=== PATIENT | female | born 1935 | race Caucasian/White ===

== ENCOUNTER 2016-11-23 17:46 | Emergency (ER) | payer MEDICARE ==
[~2016-11-23] VITALS: Ht 157.5 cm; Wt 59.0 kg
[~2016-11-23 17:46] MED LIST: ACET-62 PO; ASPI-611 PO; CALC-696 PO; ESTR0.5T4 PO; FISH1CAP47 PO; HYDR-4246 PO; LOSA25TA34 PO; NEBI5TAB8 PO; OMEP40CA52 PO; ONDA4TAB7 PO; PRED5TAB PO; [UNRECOGNIZED DRUG - CODE] PO
[2016-11-23 17:48] VITALS: Ht 157.5 cm; Wt 59.0 kg
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
[2016-11-23] MEDS ORDERED: METO25TA6 PO (18:08)
[2016-11-23] MEDS ORDERED: AMLO5TAB2 PO (18:08)
[2016-11-23] MEDS ORDERED: OMEG-43 PO (18:11)
[2016-11-23] MEDS ORDERED: PRED5TAB PO (18:11)
[2016-11-23] MEDS ORDERED: PSYL1PAC11 PO (18:13)
[2016-11-23] MEDS ORDERED: MAGN400T6 PO (18:13)
--- NOTE | 2016-11-23 18:20 | NUR ---
PHYSICIAN IN WITH PT
--- NOTE | 2016-11-23 18:26 | ERPDOC ---
Departure Disposition Decision Date: Nov 23, 2016 Disposition Decision Time: 18:59 Disposition: 01 DISCHARGED HOME, SELF-CARE Impression Impression Impression: Primary Impression: Lumbar back pain Chronicity: acute Back pain laterality: right Sciatica presence: without sciatica Qualified Codes: M54.5 - Low back pain Severity: Moderate Condition: Stable Seen By: Physician only Referrals: ZUHAIR RICHARD DO (Family) Follow-up for reevaluation Patient Instructions: Lower Back Exercises (ED) Problems/Meds/Labs Reviewed?: Yes Medications reviewed and manag: Yes Follow up care ordered?: Yes Mental Status: Alert, Oriented Scripts Hydrocodone/Acetaminophen (Cranberry 5-325 Tablet) 5-325 Tablet 1-2 TAB PO Q6H Y for PAIN, #15 TAB Prov: SHONA LEO MD 11/23/16 HPI - Back Pain General Chief Complaint: Low Back Pain or Injury Stated Complaint: LOW BACK PAIN Time Seen by Provider: 18:26 Source: patient, family Exam Limitations: no limitations HPI - Back Pain Initial Comments Patient is a 81-year-old female presents emergency room for evaluation of low back pain. Patient fell approximately 10 days ago landing on her coccyx. Since that time patient's had significant low back pain, worse when standing up or sitting down, minimal pain when sitting moderate pain when standing and walking. Patient has been taking Tylenol with moderate relief, did see her primary care physician for general checkup, discussed it with them who told her just keep taking the Tylenol. Patient is at increased use in the last 24 hours due to a garage sale, multiple walking up and down the steps. Patient now having significant low back pain so decided to present to the ER for evaluation Occurred At: home Onset/Timing: Getting worse Duration: other (10 days) Pain/Severity Scale: Now & Worst: 8/10 Location: paraspinous muscles Radiation: buttocks Method of Injury/Context: other (lost balance landing on bottom) Associated Sypmtoms: denies symptoms Allergies: Coded Allergies: celecoxib (Verified Allergy, Intermediate, SWELLING AND HIVES, 11/23/16) Pentazocine Lactate (Verified Allergy, Unknown, 11/23/16) dextromethorphan HBr (Verified Allergy, Unknown, 11/23/16) guaifenesin (Verified Allergy, Unknown, 11/23/16) ofloxacin (Verified Allergy, Unknown, 11/23/16) oxaprozin (Verified Allergy, Unknown, 11/23/16) prazosin HCl (Verified Allergy, Unknown, 11/23/16) propoxyphene (Verified Allergy, Unknown, 11/23/16) propranolol (Verified Allergy, Unknown, 11/23/16) Uncoded Allergies: MIRTHA (Allergy, Unknown, 11/02/12) Past History Past Medical History Metabolic: hypertension Cardiac: angina GI: ulcers Musculoskeletal: lupus, osteoarthritis Surgical History General: appendix, gallbladder Reproductive/: hysterectomy Joint: other Family History Family PMH: FOUND: other Vaccines Hx Influenza Vaccination: Yes (SEASONAL ) Hx Pneumococcal Vaccination: Yes (SEVERAL YEARS AGO) Social History Smoking Status: Never smoker Substance Use Type: does not use Sexuality: male partner Review of Systems Constitutional Constitutional: DENIES: chills, fever ENMT Sinuses: DENIES: congestion, rhinorrhea Cardiovascular Cardiac: DENIES: chest pain, dyspnea on exertion Pulmonary Respiratory: DENIES: cough, dyspnea, sputum, tachypnea GI Upper Abdomen: DENIES: pain Lower Abdomen: DENIES: pain Musculoskeletal General: see HPI Integumentary Skin: DENIES: color change, itching, rash Endocrine Endocrine: DENIES: heat/cold intolerance Hematologic/Lymphatic Hematologic/Lymphatic: DENIES: anemia Physical Exam General General Nourishment: well nourished, well developed General Body Habitus: well groomed Vitals and Pain First Documented Vital Signs Date Time Temp Pulse Resp B/P Pulse Ox O2 Delivery O2 Flow Rate FiO2 11/23/16 17:48 97.9 65 20 206/90 99 Room Air Weight: Kilograms: 59.000 Height (feet): 5 Height (inches): 2.00 Triage Pain Scale: RN VS reviewed by Provider: Yes Respiratory (brief) Respiratory: FOUND: equal bilaterally Cardiovascular (brief) Cardiac: FOUND: regular rate Lymphatic (brief) Lymphatic Brief: NOT FOUND: adenopathy Musculoskeletal (brief) Musculoskeletal Brief: FOUND: tenderness, NOT FOUND: spasm Integumentary (brief) Integumentary Brief: FOUND: pink, warm Neurologic (brief) Neurological Brief: FOUND: CN w/o gross def to obs, motor-no gross deficits, sensory-no gross deficits Psychiatric (brief) Psychiatric Brief: FOUND: alert, oriented Differential Diagnoses Considering: Compression Fracture, Fracture, Lumbar Sprain, Lumbar Strain Progress Results/Orders Orders Procedure Category Date Status Time Hydrocodone/Acetaminophen PHA 11/23/16 Complete (Cranberry 5/325) 18:45 Pelvis 1-2 View RAD 11/23/16 Taken Dedicated Pelv 18:33 Lumbar Spine 2-3 Views RAD 11/23/16 Taken 18:33 Medications Current ED Medications Acetaminophen/ Hydrocodone Bitart (Cranberry 5/325) 1 tab O ONCE PO Last administered on 11/23/16t 18:43; Start 11/23/16 at 18:45; Stop 11/23/16 at 18:46 ; Status DC Progress Progress Patient's x-rays are noncontributory, we'll discharge patient home Cranberry one to 2 by mouth every 6 hours when necessary pain, follow-up with primary medical physician if not improved next week. Xray Xray #1: Xray: Pelvis Interpretation: Normal, Interpreted by Me Xray #2: Xray: L-Spine Interpretation: Normal, Interpreted by SHONA Prasad MD Nov 23, 2016 18:26
[2016-11-23] MEDS ORDERED: HYDROCODONE/APAP 5 mg/325 mg TABLET PO ONE (18:45)
--- NOTE | 2016-11-23 18:45 | NUR ---
IMAGING PT TO IMAGING AT THIS TIME.
--- NOTE | 2016-11-23 18:54 | NUR ---
IMAGING PT RETURN TO ROOM FROM IMAGING VIA WHEEL CHAIR. NO SIGN OF DISTRESS AT THIS TIME.
[2016-11-23] MEDS ORDERED: HYDR-4246 PO (19:00)
[2016-11-23 19:23] VITALS: BP 162/70; PULSE 62; RESP 20; TEMP 97.9; O2SAT 99
--- NOTE | 2016-11-24 21:00 | DI ---
Indication: ITS.REASON: low back pain right greater than left PROCEDURE: LUMBAR SPINE 2-3 VIEWS: Encounter: Initial Comparison: MRI lumbar spine dated December 29, 2012 Findings: No acute fracture or subluxation seen. The body heights are maintained. Mild disk space narrowing at L3-L4 with moderate disk height loss at L4-L5 and L5-S1. Degenerative facet change at L5-S1 with slight anterolisthesis of L4 on L5. Impression: No acute fracture. .
--- NOTE | 2016-11-24 21:02 | DI ---
Indication: ITS.REASON: right posterior, near SI joint just lateral PROCEDURE: PELVIS 1-2 VIEW DEDICATED PELV: Encounter: Initial Comparison: None Findings: There is no acute fracture, dislocation or malalignment identified. Degenerative change in the visualized lower lumbar spine. Bony demineralization. Impression: No acute osseous abnormality. .
== END 2016-11-23 19:23 | disposition home or self-care (01) ==
LOC: ED 17:46
DX: M54.5 Low back pain (principal); W19.XXXA Unspecified fall, initial encounter; Y93.9 Activity, unspecified; Y92.009 Unspecified place in unspecified non-institutional (private) residence as the place of occurrence of the external cause; Y99.8 Other external cause status
CPT/HCPCS: 72100; 72170; 99283; A9270

== ENCOUNTER → 2016-11-27 | Outpatient (CLI) | payer MEDICARE ==
[~2016-11-27] MED LIST changes: +AMLO5TAB2 PO; -ASPI-611 PO; +CALC-747 PO; +CALC3.7S NAS; +DOCU-168 PO; -FISH1CAP47 PO; -LOSA25TA34 PO; +MAGN400T6 PO; +METO25TA6 PO; -NEBI5TAB8 PO; +OMEG-43 PO; -ONDA4TAB7 PO; +PSYL1PAC11 PO
--- NOTE | 2016-11-28 11:18 | DI ---
Indication: ITS.REASON: RADICULOPATHY PROCEDURE: MRI LUMBAR SPINE W/O CONTRAST: Encounter: Initial Comparison: Lumbar spine radiographs dated November 23, 2016 and MRI lumbar spine dated December 29, 2012 Technique: Multiplanar multisequence MR imaging of the lumbar spine was performed without contrast. Findings: Alignment of the lumbar spine is stable. There is some focal edema within the S2 and S3 vertebra, new from the prior study suggesting a nondisplaced trabecular fracture. The remaining bone marrow signal intensity is within normal limits. Conus medullaris terminates normally at L1-L2. The paraspinal soft tissues are unremarkable. Segmental analysis: L1-L2: Normal L2-L3: Normal L3-L4: Right foraminal disk protrusion without central canal stenosis. This narrows the right lateral recess and causes mild right neural foraminal narrowing. No significant left foraminal stenosis. This is worsened from the comparison. L4-L5: Moderate disk height loss without focal protrusion or central canal stenosis. Degenerative facet disease contributing to mild left bony neural foraminal stenosis. No right foraminal narrowing. This is similar to the comparison. L5-S1: Degenerative grade 1 anterolisthesis of L5 on S1 without focal protrusion or central canal stenosis. Mild to moderate bilateral neural foraminal stenosis, similar to the comparison. Impression: Nondisplaced sacral fracture. .
== END ==
LOC: IMA 18:05
PROVIDERS: ATTEND Internal Medicine
DX: M51.16 Intervertebral disc disorders with radiculopathy, lumbar region (principal); M43.17 Spondylolisthesis, lumbosacral region; M47.896 Other spondylosis, lumbar region; R60.0 Localized edema; Z91.81 History of falling

== ENCOUNTER 2016-11-30 05:02 | Inpatient (IN) | payer MEDICARE ==
[~2016-11-30] VITALS: Ht 157.5 cm; Wt 56.9 kg
[~2016-11-30 05:02] MED LIST changes: -CALC-747 PO; -CALC3.7S NAS; -DOCU-168 PO
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
[2016-11-30] MEDS ORDERED: FENTANYL 100mcg/2ml INJECTION IV ONE (05:30)
[2016-11-30] MEDS ORDERED: DOCU-168 PO (06:07)
--- NOTE | 2016-11-30 06:10 | NUR ---
PROVIDER DR. FOREMAN IN ROOM WITH PT.
--- NOTE | 2016-11-30 06:28 | ERPDOC ---
Departure Disposition Decision Date: Nov 30, 2016 Disposition Decision Time: 06:28 Disposition: [address] [facility] Impression Impression Impression: Primary Impression: Sacral fracture, closed Encounter type: subsequent encounter Zone of sacrum fracture: unspecified portion of sacrum Fracture healing: with routine healing Qualified Codes: S32.10XD - Unspecified fracture of sacrum, subsequent encounter for fracture with routine healing Severity: Severe Condition: Improved Seen By: Physician only Referrals: ZUHAIR RICHARD DO (Family) Problems/Meds/Labs Reviewed?: Yes Medications reviewed and manag: Yes Follow up care ordered?: Yes Mental Status: Alert, Oriented HPI - Back Pain General Chief Complaint: Low Back Pain or Injury Stated Complaint: PAIN FX SACRAM Time Seen by Provider: 05:06 Source: patient Exam Limitations: no limitations HPI - Back Pain Initial Comments Patient presents with intractable sacral pain after diagnosis by MRI of nondisplaced sacral fracture. Currently patient is using [place] 5 mg 4 times daily, but is having increased confusion when she takes the tablets, as well as inadequate pain control. Patient does not feel safe at home, and her pain has worsened to the point that she's having difficulty ambulating secondary to pain. Occurred At: home Onset/Timing: Gradual Location: coccyx 1 - Severe pain and tenderness Hx of Similar Symptoms: No Allergies: Coded Allergies: celecoxib (Verified Allergy, Intermediate, SWELLING AND HIVES, 11/30/16) Pentazocine Lactate (Verified Allergy, Unknown, 11/30/16) dextromethorphan HBr (Verified Allergy, Unknown, 11/30/16) guaifenesin (Verified Allergy, Unknown, 11/30/16) ofloxacin (Verified Allergy, Unknown, 11/30/16) oxaprozin (Verified Allergy, Unknown, 11/30/16) prazosin HCl (Verified Allergy, Unknown, 11/30/16) propoxyphene (Verified Allergy, Unknown, 11/30/16) propranolol (Verified Allergy, Unknown, 11/30/16) Uncoded Allergies: MIRTHA (Allergy, Unknown, 11/02/12) Past History Past Medical History Metabolic: hypertension Cardiac: angina GI: ulcers Musculoskeletal: lupus, osteoarthritis Surgical History General: appendix, gallbladder Reproductive/: hysterectomy Joint: other Family History Family PMH: FOUND: other Vaccines Hx Influenza Vaccination: Yes (SEASONAL ) Hx Pneumococcal Vaccination: Yes (SEVERAL YEARS AGO) Social History Substance Use Type: does not use Sexuality: male partner Review of Systems Constitutional Constitutional: DENIES: appetite decrease, appetite increase, chills, dizziness , fever, weakness ENMT Ears: DENIES: pain Hearing: DENIES: hearing loss, tinnitus Balance: DENIES: vertigo Mouth/Throat: DENIES: change in swallowing, change in voice, hoarsness, painful swallowing, sore throat Cardiovascular Cardiac: DENIES: chest pain, dyspnea on exertion Rhythm/Rate: DENIES: irregular beat, palpitations, tachycardia Vascular: DENIES: pedal edema Pulmonary Respiratory: DENIES: cough, dyspnea, pleuritic chest pain GI Upper Abdomen: DENIES: dysphagia, heartburn/indigestion, nausea, pain, vomiting Lower Abdomen: DENIES: blood in stool, constipation, diarrhea, pain General: DENIES: burning, dysuria, frequency, pain, urgency Musculoskeletal General: pain, tenderness, DENIES: atrophy of muscles, cramps, joint pain, joint swelling, weakness Integumentary Skin: DENIES: rash, sores Neurological General: DENIES: headache, numbness, tingling, vertigo, weakness Psychiatric Psychiatric: DENIES: anxiety, depression, nervousness Physical Exam General General Nourishment: well nourished, well developed, appears stated age General Body Habitus: well groomed Vitals and Pain First Documented Vital Signs Date Time Temp Pulse Resp B/P Pulse Ox O2 Delivery O2 Flow Rate FiO2 11/30/16 05:02 97.8 84 18 186/78 97 Room Air Weight: Kilograms: 58.600 Height (feet): 5 Height (inches): 2.00 Triage Pain Scale: RN VS reviewed by Provider: Yes Normal Exams: Head: Normocephalic w/o trauma Eyes: Pupils are PERRLA w/ EOMI, No scleral icterus, irritation, or foreign bodies noted ENMT: No facial trauma, nasal exudates, pharyngeal erythema, or exudates are noted Neck: Full range of motion, without adenopathy, JVD, bruits or thyromegaly Chest/Resp: Clear all ladd, with good airflow, and symmetry bilaterally CV: Regular rate and rhythm, without murmur or gallop, Pulses 2+ all extremities, capillary refill, <2 seconds all ext., no pedal edema noted Abdomen: Bowel sounds positive, soft, non-tender, non-distended, no hepatosplenomegaly, masses or bruits noted Lymphatic: No lymphadenopathy, or lymphedema noted Integumentary: No rashes, hives, or bruising noted, hair and nails, without abnormality Neurologic: Patient is alert, and oriented, cranial nerves, motor/sensory/ cerebellar, exams w/o gross deficits, to observation Psychiatric: Patient exhibits, appropriate attention, emotion and affect Musculoskeletal (brief) Musculoskeletal Brief: FOUND: tenderness, NOT FOUND: deformity, loss of motion , spasm Comments Severe low sacral tenderness, no deformity Progress Results/Orders Orders Procedure Category Date Status Time Iv Lock (Ed Only) EDM 11/30/16 Transmitted 05:26 Fentanyl (Fentanyl) PHA 11/30/16 Complete 05:30 Ondansetron Inj PHA 11/30/16 In Process (Zofran) 05:30 Lidocaine 5% Patch PHA 11/30/16 Transmitted (Lidoderm) 06:30 Morphine Sulfate PHA 11/30/16 Transmitted (Morphine) 06:30 Medications Current ED Medications Fentanyl (Fentanyl) 50 mcg O ONCE IV Last administered on 11/30/16t 05:35; Start 11/30/16 at 05:30; Stop 11/30/16 at 05:31; Status DC Ondansetron HCl (Zofran) 4 mg O PRN IV NAUSEA &/OR VOMITING; Start 11/30/16 at 05:30 Progress Progress Patient has multiple allergies as well as extreme sensitivity to medications and significant fear about medication side effects including psychosis. After extensive discussion, patient decided to except 50 g of fentanyl IV - initially patient had good pain control while lying still in bed, but still had "excruciating pain" with any movement of the legs were trying to sit up. Patient does not feel that she is safe at home, and is still not having adequate pain control. In the ER patient had applied 5% lidocaine patch to the sacrum as well as 2 mg morphine IV to improved pain control Case is discussed with Dr. Richard - will admit for pain control and OP/PT evaluation ZUHAIR FOREMAN MD Nov 30, 2016 06:28
[2016-11-30] MEDS ORDERED: MORPHINE SULFATE 2 MG SYRINGE IV ONE (06:30)
[2016-11-30] MEDS ORDERED: LIDOCAINE 5% PATCH TOP ONE (06:30)
--- NOTE | 2016-11-30 06:54 | NUR ---
REPORT REPORT CALLED TO JOLLY WOODS.
[2016-11-30] MEDS: ONDANSETRON 4mg/2ml INJECTION IV PRN (07:00)
--- NOTE | 2016-11-30 07:00 | NUR ---
ADMITTED PATIENT IS SETTLED TO ROOM 137. CONTINUES TO VERBALIZE SACRAL PAIN. PREVIOUS PAIN MEDICATIONS DID NOT HELP RELIEVE PAIN. WILL PAGE THE DOCTOR FR NEW ORDERS. PATIENT REMAINS ON RA. BP ELEVATED. PATIENT AMBULATES TO BATHROOM WITH ASSIST. STATES PAIN IS WORSE WITH ACTIVITY.
--- NOTE | 2016-11-30 07:00 | NUR ---
ADMIT/ED DEPART PT TAKEN PER WHEELCHAIR TO ROOM 137 AND RELEASED TO MEDICAL STAFF WITHOUT INCIDENT.
[2016-11-30 07:44] VITALS: BP 173/79; PULSE 64; RESP 18; TEMP 98.1; O2SAT 98
[2016-11-30 07:51] VITALS: Ht 157.5 cm; Wt 56.9 kg
[2016-11-30] MEDS ORDERED: FENTANYL 100mcg/2ml INJECTION IV PRN (08:15)
[2016-11-30] MEDS ORDERED: OMEPRAZOLE 20 MG CAPSULE PO SCH (08:30)
[2016-11-30] MEDS ORDERED: POM PredniSONE 5 MG TABLET PO SCH (08:31)
--- NOTE | 2016-11-30 08:34 | NUR ---
Response to Pain Medication Pt reports pain in back rated 3/10 when lying completely still but with any movement reports pain becomes very intense. Order received to give Fentanyl for pain. Fentanyl 25 mcg started to be given. Pt almost immediately becomes shakey and tearful and requests no more of "that medicine" be given. Pt states she feels tense and shaky and "completely out of control." Pt had previously stated that she is very sensitive to all medications. Fentanyl 25 mcg was diluted in almost 3 cc's normal saline and given very slowly-approximately 8 mcg of medication was given. BP 191/75. HR 66. O2 sat 97% room air. Will continue to monitor.
[2016-11-30] MEDS: POM DOCUSATE SODIUM 100 MG CAPSULE PO SCH ×2 (09:00→21:28)
[2016-11-30] MEDS ORDERED: OMEGA PO SCH (09:00)
[2016-11-30] MEDS: MAGNESIUM OXIDE 400 MG TABLET PO SCH (09:00)
[2016-11-30] MEDS ORDERED: D3 PO SCH (09:00)
[2016-11-30] MEDS ORDERED: FLECAINIDE 50 MG TABLET PO SCH (09:00)
[2016-11-30] MEDS ORDERED: MAGNESIUM OXIDE 400 MG TABLET PO SCH (09:00)
[2016-11-30] MEDS ORDERED: DHA PO SCH (09:00)
[2016-11-30] MEDS: AMLODIPINE 5 MG TABLET PO SCH (09:00)
[2016-11-30] MEDS ORDERED: FISH OIL PO SCH (09:00)
[2016-11-30] MEDS ORDERED: EPA PO SCH (09:00)
[2016-11-30] MEDS: LORAZEPAM 0.5 MG TABLET PO PRN ×2 (09:05→21:28)
--- NOTE | 2016-11-30 09:36 | NUR ---
Yamileth ball in EDM - 11/30/16 at 0937 by RASHID ADMIT/ED DEPART PT TAKEN PER WHEELCHAIR TO ROOM 137 AND RELEASED TO MEDICAL STAFF WITHOUT INCIDENT.
[2016-11-30] MEDS: FLECAINIDE 150 MG PO SCH ×2 (10:10→21:00)
[2016-11-30] MEDS: OMEPRAZOLE 40 MG PO SCH (10:11)
[2016-11-30 10:24] VITALS: PULSE 66; RESP 16
[2016-11-30 15:56] VITALS: BP 135/66; PULSE 79; RESP 14; O2SAT 94
--- NOTE | 2016-11-30 17:25 | NUR ---
EOS PATIENT RECEIVED PERCOCET TODAY AND HER PAIN HAS BEEN TOLERABLE . DOES NOT WANT FENTANYL OR MORPHINE ON HER MEDICATION LIST ANYMORE. THEY MAKE HER DIZZY AND DON'T HELP WITH PAIN. PATIENT HAS SLEPT ALL EVENING EXCEPT TO THE BATHROOM WITH WALKER EVEN THEN HER PAIN HAS BEEN TOLERABLE. PATIENT HAD AN EPISODE OF NAUSEA FEELING AFTER SHE ATE LUNCH BUT HAS NOT VOMITED. NO NEW CONCERNS REPORTED THIS EVENING.
--- NOTE | 2016-11-30 19:24 | HPPDOC ---
HPI - Adult Date DATE: 11/30/16 TIME: 19:04 General Chief Complaint: uncontrolled pain secondary to sacral fracture History of Present Illness Kami is a very pleasant 81-year-old white female who was brought to the emergency department last night in 9 controlled pain secondary to a nondisplaced sacral fracture. She sustained a nondisplaced sacral fracture secondary to a fall approximately a week or 2 ago. She does have a history of osteoporosis she has been trying to control the pain with 5 mg of [place] at home. 5 mg of [place] did not adequately control her pain and so she was advised to double this dose. At 10 mg she states that she was too foggy cognitively. She states she was unable to think clearly at all and so did not take 10 mg again. For the last 2 days she has been only able to control the pain with no movement at all. Upon movement her pain jumps to 9-10 out of 10. Past Medical History Past Medical History Patient's Medical History: (1) History of hematuria (2) History of anemia (3) Cardiac dysrhythmia (4) Renal insufficiency (5) Hypertension (6) Polymyalgia rheumatica (7) SLE (systemic lupus erythematosus) (8) Myasthenia gravis (9) Osteoporosis (10) Sacral fracture, closed Surgical History Patient's Surgical History: BSO/LORENA 1975, cholecystectomy 1974, appendectomy 1975 Orthopedic Surgery 2000 and 2001, colonoscopy 2009, EGD 2010 Current Medications Home Meds Active Scripts Hydrocodone/Acetaminophen ([place] 5-325 Tablet) 5-325 Tablet, 1-2 TAB PO Q6H Y for PAIN, #15 TAB Prov:SHONA LEO MD 11/23/16 Reported Medications Docusate Sodium (Colace) 100 Mg Capsule, 1 CAP PO BID for STOOL SOFTENING, CAP 11/30/16 Psyllium Husk (with Sugar) (Metamucil Packet) 3.4 Gm Powd.pack, 1 PACKET PO HS 11/23/16 Magnesium Oxide (Magnesium Oxide) 400 Mg Tablet, 400 MG PO DAILY 11/23/16 [place]-3S/Dha/Epa/Fish Oil/D3 (Fish Oil + D3 Softgel) 1 Each Capsule, 1 CAP PO DAILY 11/23/16 Prednisone (Prednisone) 5 Mg Tablet, 5 MG PO WB 11/23/16 Metoprolol Tartrate (Metoprolol Tartrate) 25 Mg Tablet, 12.5 MG PO HS Y for PRN ORDERS 11/23/16 Amlodipine Besylate (Amlodipine Besylate) 5 Mg Tablet, 5 MG PO DAILY 11/23/16 Acetaminophen (Acetaminophen) 500 Mg Tablet, 1000 MG PO Q8H Y for PAIN 05/03/16 Omeprazole (Omeprazole) 40 Mg Capsule.dr, 40 MG PO DAILY 05/03/16 Calcium Carb/Mag Oxide/Vit D3 (Calcium Magnesium + D Tablet) 1 Each Tablet, 1 TAB PO DAILY 10/09/15 Estradiol (Estrace) 0.5 Mg Tablet, 0.5 MG PO TuThSa 10/09/15 Flecainide Acetate (Flecainide Acetate) 150 Mg Tablet, 75 MG PO BID 12/15/09 Allergies: Coded Allergies: celecoxib (Verified Allergy, Intermediate, SWELLING AND HIVES, 11/30/16) Pentazocine Lactate (Verified Allergy, Unknown, 11/30/16) dextromethorphan HBr (Verified Allergy, Unknown, 11/30/16) guaifenesin (Verified Allergy, Unknown, 11/30/16) isradipine (Verified Allergy, Unknown, 11/30/16) ofloxacin (Verified Allergy, Unknown, 11/30/16) oxaprozin (Verified Allergy, Unknown, 11/30/16) piroxicam (Verified Allergy, Unknown, 11/30/16) prazosin HCl (Verified Allergy, Unknown, 11/30/16) propoxyphene (Verified Allergy, Unknown, 11/30/16) propranolol (Verified Allergy, Unknown, 11/30/16) pyridostigmine (Verified Allergy, Unknown, 11/30/16) Uncoded Allergies: MIRTHA (Allergy, Unknown, 11/02/12) Family History Family History: Mother had breast cancer father had coronary artery disease and hyperlipidemia Social History Smoking Status: Never smoker Does patient use chewing tobac: No Second Hand Exposure: No Substance Use Type: does not use Alcohol Intake: none Marital Status: Housing: house Household Members: none Service: No Current Occupational Status: retired Occupational Hazard: No Advance Directives: Yes DPOA for Healthcare Only ([place], and [place]) Review of Systems Constitutional: REPORTS: weakness, DENIES: chills, fever, weight gain, weight loss Cardiovascular DENIES: chest pain Rhythm/Rate: palpitations Vascular: DENIES: pedal edema, phlebitis Pulmonary Respiratory: DENIES: cough, dyspnea, pleuritic chest pain, sputum, tachypnea GI Upper Abdomen: DENIES: dysphagia, food intolerances, heartburn/indigestion, hematemesis, nausea Lower Abdomen: DENIES: blood in stool, rose marie-colored stools, diarrhea, melena General: DENIES: burning, dysuria, hematuria, urgency Musculoskeletal General: pain, spasm (at the left sacral base), weakness, DENIES: atrophy of muscles, cramps Integumentary Skin: DENIES: color change, itching, rash Neurological General: weakness, DENIES: headache, numbness, syncope Psychiatric Psychiatric: anxiety, depression Endocrine DENIES: heat/cold intolerance, polydipsia, polyphagia Hematologic/Lymphatic anemia, DENIES: bleeding gums, easy bruising, frequent nosebleeds, lymphadenopathy Allergic/Immunological DENIES: frequent infections, hives, sneezing All Other Systems All Other Systems: Reviewed (remainder of 10-point ROS Neg.) Physical Exam General General Nourishment: well nourished, thin, apparent age, adult General Body Habitus: well groomed Vital Signs Vital Signs Date Time Temp Pulse Resp B/P Pulse Ox O2 Delivery O2 Flow Rate FiO2 11/30/16 15:56 79 14 135/66 94 Room Air 11/30/16 07:44 98.1 Height (Feet): 5 Height (Inches): 2.00 Telemetry Rhythm: Sinus Rhythm Eyes Brief: FOUND: EOMI, PERRL, NOT FOUND: scleral icterus Neck Brief: NOT FOUND: JVD, adenopathy, carotid bruits, thyromegaly Respiratory Brief: FOUND: clear all ladd, equal bilaterally, NOT FOUND: rales , wheezes Cardiovascular (brief) Cardiac Brief: FOUND: regular rate, regular rhythm, NOT FOUND: gallop, murmur, pedal edema Abdomen (brief) Abdominal Brief: FOUND: BS normo active x4, soft, NOT FOUND: distended, hepatosplenomegaly, tender Lymphatic (brief) Lymphatic Brief: NOT FOUND: adenopathy, lymphedema Musculoskeletal (brief) Musculoskeletal Brief: FOUND: loss of motion, spasm Comments Extreme pain at the sacrum with movement Musculoskeletal Muscular: FOUND: spasm (at the left sacral base with movement) Back: FOUND: spine point tenderness (over the sacrum) Neurologic (brief) Neurological Brief: FOUND: cranial 2-12 intact, motor, sensory, NOT FOUND: facial droop, ptosis Neurologic RN Documented GCS Eye Opening: Verbal: Motor: Total: Psychiatric (brief) FOUND: alert, attentive, normal affect, oriented Concerns For Adverse Events This patient has extreme pain upon movement in her sacrum. This is most likely from her nondisplaced sacral fracture with resultant sacrospinalis spasm. I spoke with radiology about the possibility of a sacral plasty. After reviewing her MRI the interventional radiologist indicated that sacral plasty is not effective for a fracture with her location. At this time, I will try to control her pain with Lidoderm patch, Percocet, Miacalcin nasal spray with calcium and vitamin D. I will double submit calcium dose as this is the dose for bone fracture pain. At some point in the future, I think she would be a candidate for inpatient rehabilitation until she is safe enough to be at home by herself. Assessment & Plan Problems: (1) Sacral fracture, closed Status: Acute Qualifiers: Encounter type: subsequent encounter Zone of sacrum fracture: unspecified portion of sacrum Fracture healing: with routine healing Qualified Codes: S32.10XD - Unspecified fracture of sacrum, subsequent encounter for fracture with routine healing (2) Osteoporosis Status: Chronic Qualifiers: Osteoporosis type: age-related Presence of current pathological fracture: with current pathological fracture Encounter type: subsequent encounter (3) Myasthenia gravis Status: Chronic (4) SLE (systemic lupus erythematosus) Status: Chronic (5) Polymyalgia rheumatica Status: Chronic (6) Hypertension Status: Chronic Qualifiers: Hypertension type: essential hypertension Qualified Codes: I10 - Essential (primary) hypertension (7) Renal insufficiency Status: Chronic (8) Cardiac dysrhythmia Status: Chronic Code Status Full Code Hospital Course Summary Disclaimer The hospital course summary below is not to be considered part of the above Progress Note. ZUHAIR RICHARD DO Nov 30, 2016 19:07
[2016-11-30] MEDS: CALCITONIN NASAL SPRAY 200 UNITS NAS SCH (19:30)
[2016-11-30 19:46] LABS: BLOOD, URINE 2+ (NEGATIVE); COLOR,URINE YELLOW (YELLOW); LEUKOCYTE ESTERASE ,URINE TRACE (NEGATIVE); NITRITE,URINE NEGATIVE (NEGATIVE); UROBILINOGEN,URINE 0.2 EU/DL (NORMAL)
[2016-11-30 19:58] LABS: ALBUMIN 3.9 G/DL (3.5-5.0); ALBUMIN/GLOBULIN RATIO 1.1 RATIO (1.1-2.2); ALKALINE PHOSPHATASE 109 U/L (38-126); ALT (SGPT) 21 U/L (9-52); ANION GAP 12 MEQ/L (5-15); AST (SGOT) 19 U/L (14-36); BUN/CREATININE RATIO 19 RATIO (6-26); CALCIUM 9.3 MG/DL (8.4-10.2); CHLORIDE 95 MEQ/L (98-107); CO2 - CARBON DIOXIDE 26 MEQ/L (22-30); CREATININE 1.3 MG/DL (0.7-1.2); GLOMERULAR FILTRATION RATE 40; GLUCOSE 126 MG/DL (65-110); POTASSIUM 4.5 MEQ/L (3.6-5); SODIUM 133 MEQ/L (134-144); TOTAL PROTEIN 7.4 G/DL (6.3-8.2)
[2016-11-30 20:00] VITALS: PULSE 79; RESP 16
[2016-11-30 20:03] LABS: BACTERIA,URINE TRACE (NEGATIVE); WBC,URINE 0-1 /HPF (0-5)
[2016-11-30] MEDS: PSYLLIUM PO SCH (21:27)
[2016-11-30] MEDS: CALCIUM 600mg + VIT D 400 TABLET PO SCH (21:27)
[2016-11-30 23:59] VITALS: BP 129/65; PULSE 57; RESP 16; TEMP 98.1; O2SAT 96
[2016-12-01] MEDS: LORAZEPAM 0.5 MG TABLET PO PRN ×2 (04:31→21:51)
[2016-12-01 05:23] LABS: BASOPHILS % (AUTO) 0.3 % (0-2); EOSINOPHILS # (AUTO) 0.1 T/MM3 (0-0.5); EOSINOPHILS % (AUTO) 1.4 % (0-4); HCT - HEMATOCRIT 35.2 % (36-46); IMMATURE GRANULOCYTE # (AUTO) 0.02 T/MM3 (0.00-0.03); IMMATURE GRANULOCYTE % (AUTO) 0.3 % (0.0-0.5); LYMPHOCYTES # (AUTO) 2.4 T/MM3 (1-4.8); LYMPHOCYTES % (AUTO) 38.4 % (23-45); MEAN CORPUSCULAR HGB CONC(MCHC 31.3 GM/DL (31-37); MEAN CORPUSCULAR VOLUME 92.9 UM3 (80-100); MONOCYTES # (AUTO) 0.8 T/MM3 (0-0.8); MONOCYTES % (AUTO) 12.4 % (0-9.0); NEUTROPHILS #(AUTO)-ABSOLUTE 2.9 T/MM3 (1.8-7.7); NEUTROPHILS % (AUTO) 47.2 % (33-66); RED BLOOD COUNT 3.79 M/MM3 (4.00-5.20); WBC - WHITE BLOOD COUNT 6.2 T/MM3 (4.5-11.0)
[2016-12-01] MEDS: OMEPRAZOLE 40 MG PO SCH (07:10)
--- NOTE | 2016-12-01 07:27 | NUR ---
SHIFT SUMMARY PT IS ALERT AND ORIENTED X 3. UP TO THE BR WITH SBA AND FWW. PT STATES HER PAIN INCREASED AT SACRAL AREA WITH SITTING UP OR WALKING. LAYING BED HER PAIN WAS 2-4/10. PERCOCET X1 TAB GIVEN PER ORDER FOR PAIN 03/21. PT REQUEST ATIVAN AT BED TIME TO HELP HER ANXIETY. DAUGHTER AT BED SIDE FOR THE NIGHT. REMINDED PT TO CALL FOR PAIN MEDICATION BEFORE THE PAIN IS OUT OF CONTROL. PT VERBALIZED UNDERSTANDING. CALL LIGHT WITHIN REACH.
[2016-12-01 08:00] VITALS: BP 138/66; PULSE 51; RESP 16; TEMP 97.6; O2SAT 94
[2016-12-01 08:19] VITALS: PULSE 51
[2016-12-01] MEDS: PredniSONE 10 MG TABLET PO SCH (08:43)
[2016-12-01] MEDS: CALCIUM 600mg + VIT D 400 TABLET PO SCH ×2 (08:45→21:51)
[2016-12-01] MEDS: ESTRADIOL 0.5 MG TABLET PO SCH (08:45)
[2016-12-01] MEDS: FLECAINIDE 150 MG PO SCH ×2 (08:45→21:51)
[2016-12-01] MEDS: MAGNESIUM OXIDE 400 MG TABLET PO SCH (08:47)
[2016-12-01] MEDS: AMLODIPINE 5 MG TABLET PO SCH (08:48)
[2016-12-01] MEDS: CALCITONIN NASAL SPRAY 200 UNITS NAS SCH (08:49)
[2016-12-01] MEDS: POM DOCUSATE SODIUM 100 MG CAPSULE PO SCH ×2 (08:50→21:52)
--- NOTE | 2016-12-01 09:58 | NUR ---
CM CM IN TO VISIT PT AND DAUGHTER. CM EXPLAINS ROLE AND PROVIDED CONTACT INFORMATION. PT REPORTS THAT THE PLAN IS TO GO TO IRU PER DR RICHARD. PT DENIES DC NEEDS AND IS AWARE TO CONTACT CM SHOULD NEEDS ARISE.
[2016-12-01] MEDS ORDERED: MAG-AL + SIM LIQUID 30 ML UDC PO PRN (10:45)
[2016-12-01] MEDS ORDERED: NITROGLYCERIN 0.4 MG SUBLINGUAL TABLET SL PRN (10:45)
[2016-12-01] MEDS ORDERED: BISACODYL 10 MG SUPPOSITORY RECTALLY PRN (10:45)
[2016-12-01] MEDS ORDERED: PRN ORDERS MC (10:45)
--- NOTE | 2016-12-01 12:10 | NUR ---
RASHIDA CM IN TO VISIT PT TALKED WITH HER ABOUT A BACK UP PLAN IF GOING TO IRU DOES NOT WORK AND THERAPY WERE NEEDED R/T WEAKNESS, PAIN AND FRACTURE. PT PROVIDED LIST OF AREA SKILLED FACILITIES TO LOOK OVER.
--- NOTE | 2016-12-01 13:09 | PNPDOC ---
Subjective Date DATE: 12/01/16 TIME: 12:52 Subjective F/U: Sacral fracture Coverage for Dr Dietz Doing better today-pain finally controllable at rest. Still has significant discomfort with movements-hard to get out of bed due to pain and very painful with walking. Worked with therapy today-painful. Tolerating Percocet without nausea. No ab pain. Breathing well without SOA, cough or congestion. No chest pressure or palpitations. No f/c. Objective Vital Signs Vital signs Vital Signs Date Time Temp Pulse Resp B/P Pulse Ox O2 Delivery O2 Flow Rate FiO2 12/01/16 08:19 51 12/01/16 08:00 97.6 16 138/66 94 Room Air Telemetry Rhythm: Sinus Rhythm Height (Feet): 5 Height (Inches): 2.00 Weight (Kilograms): 57.000 General General Appearance: Alert, Orientated x 3, Well Nourished, Well Developed, Cooperative, Looks Stated Age Eyes (Brief) Eyes: FOUND: EOMI, PERRL, NOT FOUND: scleral icterus ENMT (Brief) ENMT: FOUND: hearing intact, mucosa moist Neck (Brief) Neck: FOUND: midline, NOT FOUND: nuchal rigidity, spasm Respiratory (Brief) Respiratory: FOUND: clear all ladd, equal bilaterally, NOT FOUND: rales, wheezes Cardiovascular (Brief) Cardiac: FOUND: regular rate, regular rhythm, NOT FOUND: pedal edema Abdomen (Brief) Abdominal: FOUND: BS normo active x4, soft, NOT FOUND: distended, tender Extremities (Brief) Extremity : Side: Bilateral Extremity: leg Extremity Finding: NOT FOUND: edema Musculoskeletal (Brief) Musculoskeletal: NOT FOUND: deformity, spasm Integumentary (Brief) Integumentary: FOUND: dry, warm Neurologic (Brief) Neurological: FOUND: cranial 2-12 intact, motor (Intact ) Psychiatric (Brief) Psychiatric: FOUND: alert, attentive, normal affect, oriented Laboratory Laboratory Laboratory Tests 11/30/16 19:38 Laboratory Tests 12/01/16 04:08 Assessment & Plan Problems: (1) Sacral fracture, closed Status: Acute Qualifiers: Encounter type: subsequent encounter Zone of sacrum fracture: unspecified portion of sacrum Fracture healing: with routine healing Qualified Codes: S32.10XD - Unspecified fracture of sacrum, subsequent encounter for fracture with routine healing (2) Gait instability Status: Acute Assessment & Plan: Pain with ambulation affecting gait. (3) Osteoporosis Status: Chronic Qualifiers: Osteoporosis type: age-related Presence of current pathological fracture: with current pathological fracture Encounter type: subsequent encounter (4) Myasthenia gravis Status: Chronic (5) SLE (systemic lupus erythematosus) Status: Chronic (6) Polymyalgia rheumatica Status: Chronic (7) Hypertension Status: Chronic Qualifiers: Hypertension type: essential hypertension Qualified Codes: I10 - Essential (primary) hypertension (8) Stage III chronic kidney disease Status: Chronic (9) Cardiac dysrhythmia Status: Chronic (10) Hyponatremia Status: Acute Assessment & Plan: POA Plan/Intensity of Service Consult PT/OT to help maximize functional status. Continue with pain control. Add prn MOM, Dulcolax, and Miralax to routine Colace to help decrease potential for narcotic induced constipation. SCD for DVT prevention. Recheck BMP in am due to hyponatremia. Will check Vitamin D level due to fracture. Case discussed with CM and patient's daughter. Time spent with patient care 25 minutes. DVT Prophylaxis: SCD'S Code Status Full Code Hospital Course Summary Disclaimer The hospital course summary below is not to be considered part of the above Progress Note. Hospital Course Summary 11/30 Admit. Kami is a very pleasant 81-year-old white female who was brought to the emergency department last night in 9 controlled pain secondary to a nondisplaced sacral fracture. She sustained a nondisplaced sacral fracture secondary to a fall approximately a week or 2 ago. She does have a history of osteoporosis she has been trying to control the pain with 5 mg of [place] at home. 5 mg of [place] did not adequately control her pain and so she was advised to double this dose. At 10 mg she states that she was too foggy cognitively. She states she was unable to think clearly at all and so did not take 10 mg again. For the last 2 days she has been only able to control the pain with no movement at all. Upon movement her pain jumps to 9-10 out of 10. This patient has extreme pain upon movement in her sacrum. This is most likely from her nondisplaced sacral fracture with resultant sacrospinalis spasm. I spoke with radiology about the possibility of a sacral plasty. After reviewing her MRI the interventional radiologist indicated that sacral plasty is not effective for a fracture with her location. At this time, I will try to control her pain with Lidoderm patch, Percocet, Miacalcin nasal spray with calcium and vitamin D. I will double submit calcium dose as this is the dose for bone fracture pain. At some point in the future, I think she would be a candidate for inpatient rehabilitation until she is safe enough to be at home by herself. 12/01 - Dr Park - Coverage for Dr Dietz. Doing better today-pain finally controllable at rest. Still has significant discomfort with movements-hard to get out of bed due to pain and very painful with walking. Worked with therapy today-painful. Tolerating Percocet without nausea. No ab pain. Breathing well without SOA, cough or congestion. No chest pressure or palpitations. No f/c. Consult PT/OT to help maximize functional status. Continue with pain control. Add prn MOM, Dulcolax, and Miralax to routine Colace to help decrease potential for narcotic induced constipation. SCD for DVT prevention. Recheck BMP in am due to hyponatremia. Will check Vitamin D level due to fracture. EVARISTO PARK MD Dec 01, 2016 12:55
[2016-12-01] MEDS ORDERED: POLYETHYL.GLYCOL 3350 PACKET 17gm PO PRN (13:15)
[2016-12-01 15:18] VITALS: BP 157/71; PULSE 81; RESP 18; TEMP 98.2; O2SAT 95
--- NOTE | 2016-12-01 15:23 | NUR ---
[facility] IRU unable to perform screen due to the insurance provider not giving preauthorization on weekends . IRU will screen saturday.
[2016-12-01] MEDS: OXYCODONE/APAP 5mg/325mg TABLET PO PRN ×2 (16:14→21:54)
--- NOTE | 2016-12-01 16:36 | NUR ---
Status Patient able to transfer easier today then in the past couple weeks. Ambulated to nurses desk and back to room utilizing a walker. Patient places a lot of her weight on the walker. Pain use to be 10/10 with transfers and is now 9/10. Percocet 7.5 was making her have visual hallucinations therefore to Percocet 5.
[2016-12-01 20:00] VITALS: PULSE 81; RESP 18
--- NOTE | 2016-12-01 20:20 | NUR ---
Activity Pt ambulated to nursing desk with SBA, walker and her daughter. Pt tolerated it well, rated her pain 8/10. States pain was so much better now. Pt walked to end of [facility] from nursing desk and sat with her daughter. She continues to lean on to her FWW for support. Gait is steady.
[2016-12-01] MEDS: PSYLLIUM PO SCH (21:51)
[2016-12-02] VITALS: BP 130/62; PULSE 53; RESP 16; TEMP 98.2
--- NOTE | 2016-12-02 03:14 | NUR ---
STATUS PT SLEEPING WELL, STATES PAIN IS WELL CONTROL. DENIES HAVING VISUAL HALLUCINATION WITH THE DECREASED DOSE OF PERCOCET. UP TO THE BATHROOM WITH SBA. DENIES NEEDS AT THIS TIME.
[2016-12-02 05:49] LABS: ANION GAP 11 MEQ/L (5-15); BUN/CREATININE RATIO 23 RATIO (6-26); CALCIUM 9.8 MG/DL (8.4-10.2); CHLORIDE 95 MEQ/L (98-107); CO2 - CARBON DIOXIDE 28 MEQ/L (22-30); CREATININE 1.2 MG/DL (0.7-1.2); GLOMERULAR FILTRATION RATE 43; GLUCOSE 106 MG/DL (65-110); POTASSIUM 4.5 MEQ/L (3.6-5); SODIUM 134 MEQ/L (134-144)
[2016-12-02] MEDS: OMEPRAZOLE 40 MG PO SCH (06:30)
[2016-12-02] MEDS: OXYCODONE/APAP 5mg/325mg TABLET PO PRN ×3 (06:43→19:23)
[2016-12-02 07:36] VITALS: BP 129/63; PULSE 53; RESP 12; TEMP 97.7; O2SAT 93
[2016-12-02] MEDS: AMLODIPINE 5 MG TABLET PO SCH (08:51)
[2016-12-02] MEDS: MILK OF MAGNESIA 30 ML SUSP PO PRN (08:51)
[2016-12-02] MEDS: PredniSONE 10 MG TABLET PO SCH (08:52)
[2016-12-02] MEDS: MAGNESIUM OXIDE 400 MG TABLET PO SCH (08:52)
[2016-12-02] MEDS: POM DOCUSATE SODIUM 100 MG CAPSULE PO SCH ×2 (08:52→21:46)
[2016-12-02] MEDS: CALCIUM 600mg + VIT D 400 TABLET PO SCH ×2 (08:52→21:46)
[2016-12-02] MEDS: CALCITONIN NASAL SPRAY 200 UNITS NAS SCH (08:52)
[2016-12-02] MEDS: OMEGA-3 ACID ESTERS 1 G CAPSULE PO SCH (08:52)
[2016-12-02] MEDS ORDERED: FLECAINIDE 100 MG TABLET PO SCH (09:00)
[2016-12-02] MEDS: FLECAINIDE 50 MG TABLET PO SCH ×2 (09:00→21:46)
[2016-12-02] MEDS: ACETAMINOPHEN 500 MG TABLET PO PRN (11:05)
--- NOTE | 2016-12-02 11:59 | PNPDOC ---
Subjective Date DATE: 12/02/16 TIME: 11:52 Subjective F/U: Sacral fracture Coverage for Dr Dietz Doing okay. More sore today-feels overdid it yesterday. Pain adequately controlled. Tolerating medications-was 'fuzzy' with them yesterday, but not so much today. Slight nausea this am, but able to eat well and not have emesis. Passing flatus-feels about ready for bowel movement. Breathing well. No chest pain. No f/c. Objective Vital Signs Vital signs Vital Signs Date Time Temp Pulse Resp B/P Pulse Ox O2 Delivery O2 Flow Rate FiO2 12/02/16 07:36 97.7 53 12 129/63 93 Room Air Telemetry Rhythm: Sinus Rhythm Height (Feet): 5 Height (Inches): 2.00 Weight (Kilograms): 56.100 General General Appearance: Alert, Orientated x 3, Well Nourished, Well Developed, Cooperative, Looks Stated Age Eyes (Brief) Eyes: FOUND: EOMI, PERRL, NOT FOUND: scleral icterus ENMT (Brief) ENMT: FOUND: hearing intact, mucosa moist Neck (Brief) Neck: FOUND: midline, NOT FOUND: nuchal rigidity, spasm Respiratory (Brief) Respiratory: FOUND: clear all ladd, equal bilaterally, NOT FOUND: rales, wheezes Cardiovascular (Brief) Cardiac: FOUND: regular rate, regular rhythm, NOT FOUND: pedal edema Abdomen (Brief) Abdominal: FOUND: BS normo active x4, soft, NOT FOUND: distended, tender Extremities (Brief) Extremity : Side: Bilateral Extremity: leg Extremity Finding: FOUND: other (SCD in place ), NOT FOUND: edema Musculoskeletal (Brief) Musculoskeletal: NOT FOUND: deformity, spasm, tenderness Integumentary (Brief) Integumentary: FOUND: dry, warm Neurologic (Brief) Neurological: FOUND: cranial 2-12 intact, motor (Intact ) Psychiatric (Brief) Psychiatric: FOUND: alert, attentive, normal affect, oriented Laboratory Laboratory Laboratory Tests 11/30/16 19:38 12/02/16 04:28 Laboratory Tests 12/01/16 04:08 Assessment & Plan Problems: (1) Sacral fracture, closed Status: Acute Qualifiers: Encounter type: subsequent encounter Zone of sacrum fracture: unspecified portion of sacrum Fracture healing: with routine healing Qualified Codes: S32.10XD - Unspecified fracture of sacrum, subsequent encounter for fracture with routine healing (2) Gait instability Status: Acute Assessment & Plan: Pain with ambulation affecting gait. (3) Osteoporosis Status: Chronic Qualifiers: Osteoporosis type: age-related Presence of current pathological fracture: with current pathological fracture Encounter type: subsequent encounter (4) Myasthenia gravis Status: Chronic (5) SLE (systemic lupus erythematosus) Status: Chronic (6) Polymyalgia rheumatica Status: Chronic (7) Hypertension Status: Chronic Qualifiers: Hypertension type: essential hypertension Qualified Codes: I10 - Essential (primary) hypertension (8) Stage III chronic kidney disease Status: Chronic (9) Cardiac dysrhythmia Status: Chronic (10) Hyponatremia Status: Acute Assessment & Plan: POA Plan/Intensity of Service Continue PT/OT to help maximize functional status - IRU screen placed, anticipate evaluation for IRU tomorrow. Continue with pain control. Continue with bowel motivation. Continue SCDs for DVT prevention. Anticipate Dr Dietz's return in am, care will be transferred back. Case discussed with patient's daughter. Time spent with patient care 25 minutes. DVT Prophylaxis: SCD'S Code Status Full Code Hospital Course Summary Disclaimer The hospital course summary below is not to be considered part of the above Progress Note. Hospital Course Summary 11/30 Admit. Kami is a very pleasant 81-year-old white female who was brought to the emergency department last night in 9 controlled pain secondary to a nondisplaced sacral fracture. She sustained a nondisplaced sacral fracture secondary to a fall approximately a week or 2 ago. She does have a history of osteoporosis she has been trying to control the pain with 5 mg of [place] at home. 5 mg of [place] did not adequately control her pain and so she was advised to double this dose. At 10 mg she states that she was too foggy cognitively. She states she was unable to think clearly at all and so did not take 10 mg again. For the last 2 days she has been only able to control the pain with no movement at all. Upon movement her pain jumps to 9-10 out of 10. This patient has extreme pain upon movement in her sacrum. This is most likely from her nondisplaced sacral fracture with resultant sacrospinalis spasm. I spoke with radiology about the possibility of a sacral plasty. After reviewing her MRI the interventional radiologist indicated that sacral plasty is not effective for a fracture with her location. At this time, I will try to control her pain with Lidoderm patch, Percocet, Miacalcin nasal spray with calcium and vitamin D. I will double submit calcium dose as this is the dose for bone fracture pain. At some point in the future, I think she would be a candidate for inpatient rehabilitation until she is safe enough to be at home by herself. 12/01 - Dr Park - Coverage for Dr Dietz. Doing better today-pain finally controllable at rest. Still has significant discomfort with movements-hard to get out of bed due to pain and very painful with walking. Worked with therapy today-painful. Tolerating Percocet without nausea. No ab pain. Breathing well without SOA, cough or congestion. No chest pressure or palpitations. No f/c. Consult PT/OT to help maximize functional status. Continue with pain control. Add prn MOM, Dulcolax, and Miralax to routine Colace to help decrease potential for narcotic induced constipation. SCD for DVT prevention. Recheck BMP in am due to hyponatremia. Will check Vitamin D level due to fracture. 12/03 - Xavier - coverage for Dr Dietz Doing okay. More sore today-feels overdid it yesterday. Pain adequately controlled. Tolerating medications-was 'fuzzy' with them yesterday, but not so much today. Slight nausea this am, but able to eat well and not have emesis. Passing flatus-feels about ready for bowel movement. Breathing well. No chest pain. No f/c. Continue PT/OT to help maximize functional status - IRU screen placed, anticipate evaluation for IRU tomorrow. Continue with pain control. Continue with bowel motivation. Continue SCDs for DVT prevention. EVARISTO PARK MD Dec 02, 2016 11:55
--- NOTE | 2016-12-02 13:37 | NUR ---
Status Patient thinks she over did it yesterday with her ambulation, sore today. Up with stand by assist. Percocet and Tylenol given as needed. Uses walker to ambulate.
[2016-12-02 15:30] VITALS: BP 135/65; PULSE 62; RESP 14; TEMP 97.7; O2SAT 95
[2016-12-02 16:39] VITALS: PULSE 63; RESP 12; O2SAT 93
--- NOTE | 2016-12-02 17:37 | NUR ---
Status Patient states her pain is better this evening then this am. Up with stand by assist. Daughter has been at bedside. Good appetite. Denies nausea/SOA.
[2016-12-02] MEDS: LORAZEPAM 0.5 MG TABLET PO PRN (21:46)
[2016-12-02] MEDS: PSYLLIUM PO SCH (22:02)
[2016-12-02 23:40] VITALS: BP 146/74; PULSE 74; RESP 18; TEMP 97.8; O2SAT 94
[2016-12-03] MEDS: OXYCODONE/APAP 5mg/325mg TABLET PO PRN ×4 (01:58→20:41)
--- NOTE | 2016-12-03 04:33 | NUR ---
SUMMARY ALERT, ORIENTED. PAIN RATED 9/10, SOME WHAT CONTROLLED ON PERCOCET 5, GIVEN ORDERED. UP WITH STAND BY ASSIST. DENIES SOA, OR CHEST PAIN. DAUGHTER AT BEDSIDE.
[2016-12-03] MEDS: OMEPRAZOLE 20 MG CAPSULE PO SCH (06:29)
--- NOTE | 2016-12-03 07:00 | NUR ---
UPDATE PT IS A&OX3, REPORTS SHE MAY NEED HER PAIN PILL AROUND 0800 THIS MORNING. REPORTS SHE ALREADY ORDERED BREAKFAST. WILL CONTINUE TO MONITOR PT AND ADMINISTER PAIN MED AT 0800.
[2016-12-03 08:00] VITALS: BP 137/66; PULSE 51; RESP 15; TEMP 97.5; O2SAT 95
[2016-12-03] MEDS: CALCIUM 600mg + VIT D 400 TABLET PO SCH ×2 (08:09→20:41)
[2016-12-03] MEDS: POM DOCUSATE SODIUM 100 MG CAPSULE PO SCH ×2 (08:09→20:40)
[2016-12-03] MEDS: FLECAINIDE 50 MG TABLET PO SCH ×2 (08:09→20:41)
[2016-12-03] MEDS: AMLODIPINE 5 MG TABLET PO SCH (08:10)
[2016-12-03] MEDS: MAGNESIUM OXIDE 400 MG TABLET PO SCH (08:10)
[2016-12-03] MEDS: PredniSONE 10 MG TABLET PO SCH (08:10)
[2016-12-03] MEDS: OMEGA-3 ACID ESTERS 1 G CAPSULE PO SCH (08:10)
[2016-12-03] MEDS: CALCITONIN NASAL SPRAY 200 UNITS NAS SCH (08:11)
--- NOTE | 2016-12-03 11:30 | NUR ---
RASHIDA CM VISITED PT. CM EXPLAINED ROLE AND PROVIDED CONTACT INFORMATION. PT WOULD LIKE TO GO TO IRU BUT OPEN TO [facility] OR PM. PT IS AWARE TO CONTACT CM IF NEEDS ARISE.
--- NOTE | 2016-12-03 14:25 | NUR ---
UPDATE PT WAS COMPLAINING OF PAIN AFTER PHYSICAL THERAPY. PT WAS PROVIDED WITH A HEATING PAD AND ALSO WAS GIVEN PERCOCET, WILL CONTINUE TO MONITOR PTS PAIN.
[2016-12-03 16:00] VITALS: BP 149/67; PULSE 72; RESP 15; TEMP 97.2; O2SAT 95
--- NOTE | 2016-12-03 16:14 | NUR ---
CM PT HAS BEEN ACCEPTED TO [facility]. ANTICIPATING D/C FOR TOMORROW. PT IS AWARE. FACILITY AWARE THAT PT IS INSURANCE AND CM FAXED THEM THE PT/OT EVALS. [facility] AWARE TO CONTACT IF NEEDS ARISE.
--- NOTE | 2016-12-03 17:38 | PNPDOC ---
Subjective Date DATE: 12/03/16 TIME: 17:31 Subjective Patient seen and examined in her room. She was able to walk in the hallway this weekend. Chart notes, labs, and radiographs reviewed from this weekend. She has been using the miacalcin nasal spray as well as calcium and vitamin D for pain relief. At this time she has no pain when she remained still. She states that she has 9 out of 10 sacral pain from the sacral fracture when she moves. Apparently, she didn't qualify for inpatient rehabilitation earlier today as they said that she was in too good of shape. She states that she is able to bear weight and walk with a walker, however the next day she can barely move due to the pain Objective Vital Signs Vital signs Vital Signs 12/03/16 12/03/16 08:00 16:00 Temp 97.5 97.2 Pulse 51 72 Resp 15 15 B/P 137/66 149/67 Pulse Ox 95 95 O2 Delivery Room Air Room Air Telemetry Rhythm: Sinus Rhythm Height (Feet): 5 Height (Inches): 2.00 Weight (Kilograms): 56.300 General General Appearance: Alert, Orientated x 3, Cooperative, No Acute Distress Eyes (Brief) Eyes: FOUND: EOMI, PERRL, NOT FOUND: scleral icterus Neck (Brief) Neck Brief: NOT FOUND: JVD, adenopathy, carotid bruits, thyromegaly Respiratory (Brief) Respiratory Brief: FOUND: clear all ladd, equal bilaterally, NOT FOUND: rales , wheezes Cardiovascular (Brief) Cardiac: FOUND: regular rate, regular rhythm, NOT FOUND: gallop, murmur, pedal edema Abdomen (Brief) Abdominal: FOUND: BS normo active x4, soft, NOT FOUND: distended, hepatosplenomegaly, tender Extremities (Brief) Extremity : Side: Bilateral Extremity Finding: NOT FOUND: edema, pain Lymphatic (Brief) Lymphatic Brief: NOT FOUND: adenopathy, lymphedema Musculoskeletal (Brief) Musculoskeletal Brief: FOUND: spasm, tenderness (over the left sacral base) Integumentary (Brief) Integumentary: FOUND: dry, pink, warm, NOT FOUND: rash Neurologic (Brief) Neurologic: FOUND: cranial 2-12 intact, motor, sensory Psychiatric (Brief) Psychiatric: FOUND: alert, attentive, normal affect, oriented Assessment & Plan Problems: (1) Sacral fracture, closed Status: Acute Qualifiers: Encounter type: subsequent encounter Zone of sacrum fracture: unspecified portion of sacrum Fracture healing: with routine healing Qualified Codes: S32.10XD - Unspecified fracture of sacrum, subsequent encounter for fracture with routine healing (2) Gait instability Status: Acute Assessment & Plan: Pain with ambulation affecting gait. (3) Osteoporosis Status: Chronic Qualifiers: Osteoporosis type: age-related Presence of current pathological fracture: with current pathological fracture Encounter type: subsequent encounter (4) Myasthenia gravis Status: Chronic (5) SLE (systemic lupus erythematosus) Status: Chronic (6) Polymyalgia rheumatica Status: Chronic (7) Hypertension Status: Chronic Qualifiers: Hypertension type: essential hypertension Qualified Codes: I10 - Essential (primary) hypertension (8) Stage III chronic kidney disease Status: Chronic (9) Cardiac dysrhythmia Status: Chronic (10) Hyponatremia Status: Acute Assessment & Plan: POA Plan/Intensity of Service Continue PT/OT to help maximize functional status - IRU screen placed, anticipate evaluation for IRU tomorrow. Continue with pain control. Continue with bowel motivation. Continue SCDs for DVT prevention. Anticipate Dr Richard's return in am, care will be transferred back. Case discussed with patient's daughter. Time spent with patient care 25 minutes. Code Status Full Code Hospital Course Summary Disclaimer The hospital course summary below is not to be considered part of the above Progress Note. Hospital Course Summary 11/30 Admit. Kami is a very pleasant 81-year-old white female who was brought to the emergency department last night in 9 controlled pain secondary to a nondisplaced sacral fracture. She sustained a nondisplaced sacral fracture secondary to a fall approximately a week or 2 ago. She does have a history of osteoporosis she has been trying to control the pain with 5 mg of [place] at home. 5 mg of [place] did not adequately control her pain and so she was advised to double this dose. At 10 mg she states that she was too foggy cognitively. She states she was unable to think clearly at all and so did not take 10 mg again. For the last 2 days she has been only able to control the pain with no movement at all. Upon movement her pain jumps to 9-10 out of 10. This patient has extreme pain upon movement in her sacrum. This is most likely from her nondisplaced sacral fracture with resultant sacrospinalis spasm. I spoke with radiology about the possibility of a sacral plasty. After reviewing her MRI the interventional radiologist indicated that sacral plasty is not effective for a fracture with her location. At this time, I will try to control her pain with Lidoderm patch, Percocet, Miacalcin nasal spray with calcium and vitamin D. I will double submit calcium dose as this is the dose for bone fracture pain. At some point in the future, I think she would be a candidate for inpatient rehabilitation until she is safe enough to be at home by herself. 12/01 - Dr Park - Coverage for Dr Richard. Doing better today-pain finally controllable at rest. Still has significant discomfort with movements-hard to get out of bed due to pain and very painful with walking. Worked with therapy today-painful. Tolerating Percocet without nausea. No ab pain. Breathing well without SOA, cough or congestion. No chest pressure or palpitations. No f/c. Consult PT/OT to help maximize functional status. Continue with pain control. Add prn MOM, Dulcolax, and Miralax to routine Colace to help decrease potential for narcotic induced constipation. SCD for DVT prevention. Recheck BMP in am due to hyponatremia. Will check Vitamin D level due to fracture. 12/02 - Xavier - coverage for Dr Richard Doing okay. More sore today-feels overdid it yesterday. Pain adequately controlled. Tolerating medications-was 'fuzzy' with them yesterday, but not so much today. Slight nausea this am, but able to eat well and not have emesis. Passing flatus-feels about ready for bowel movement. Breathing well. No chest pain. No f/c. Continue PT/OT to help maximize functional status - IRU screen placed, anticipate evaluation for IRU tomorrow. Continue with pain control. Continue with bowel motivation. Continue SCDs for DVT prevention. 12/03/2016: Hospitalist notes reviewed from this weekend and appreciated. Kami seems to be doing somewhat better today however she still has significant pain with movement. She is able to support her weight with the aid of a walker and is able to ambulate to the bathroom and even down the velasco. She may be ready to discharge for outside nursing care as soon as tomorrow. ZUHAIR RICHARD DO Dec 03, 2016 17:34
--- NOTE | 2016-12-03 18:22 | NUR ---
SUMMARY PT HAS BEEN PLEASANT AND COOPERATIVE TODAY, PT IS ABLE TO GET UP W/O ASSISTANCE AND USES WALKER TO GET AROUND. PT WAS GIVEN PAIN MEDICATION TWICE TODAY AND WE USED HEAT A SUPPLEMENTAL THERAPY. PT SPENT MOST OF THE DAY VISITING WITH DAUGHTER AND HOPES SHE WILL BE MOVED TO IRU TOMORROW.
[2016-12-03] MEDS: PSYLLIUM PO SCH (20:41)
[2016-12-03] MEDS: LORAZEPAM 0.5 MG TABLET PO PRN (22:13)
[2016-12-03 23:40] VITALS: BP 137/70; PULSE 50; RESP 14; TEMP 98.3; O2SAT 94
[2016-12-04] MEDS: OXYCODONE/APAP 5mg/325mg TABLET PO PRN (02:20)
--- NOTE | 2016-12-04 02:30 | NUR ---
Pt reports feeling increasing abdominal pain and nausea. Patient states she has had these symptoms in the past but it has been nearly 1 1/[address] Pt [address] Wyman felt her bowels may get twisted at times. Pt also feels she may be a little constipated. IV started and zofran given for nausea. Will continue to monitor.
[2016-12-04] MEDS: ONDANSETRON 4mg/2ml INJECTION IV PRN ×2 (02:32→18:23)
[2016-12-04] MEDS: LORAZEPAM 2 MG/ML INJECTION IV PRN ×3 (04:12→20:13)
[2016-12-04] MEDS: OMEPRAZOLE 20 MG CAPSULE PO SCH (06:30)
[2016-12-04 07:26] VITALS: BP 159/77; PULSE 89; TEMP 98.3; O2SAT 94
[2016-12-04] MEDS: PredniSONE 10 MG TABLET PO SCH (08:00)
--- NOTE | 2016-12-04 08:08 | NUR ---
Status Patient alert and oriented. Is having abdominal pain 10/10. Patient states she feels her abdomen feels larger then normal. Nausea. Will hold off on PO until imaging results are posted. Up with assist of 1 and walker. Patient positions herself.
--- NOTE | 2016-12-04 08:19 | DI ---
Indication: ITS.REASON: increased abdominal pain PROCEDURE: PA view of the chest with supine and upright AP views of the abdomen Encounter: Initial Comparison: March 11, 2011 FINDINGS: The lungs are clear. There is no abnormal airspace opacity, pleural effusion or pneumothorax identified. The heart size, pulmonary vasculature and mediastinum are within normal limits. There is no free air on the upright view. Multiple nondifferential small bowel air-fluid levels. Mild small bowel dilatation in the central abdomen up to 3.5 cm. Moderate stool throughout the colon. Moderate stool is seen throughout the colon. IMPRESSION: 1. No acute cardiopulmonary abnormality. 2. Small bowel air-fluid levels could represent ileus or gastroenteritis. .
[2016-12-04] MEDS: MAGNESIUM OXIDE 400 MG TABLET PO SCH (09:00)
[2016-12-04] MEDS: CALCIUM 600mg + VIT D 400 TABLET PO SCH ×2 (09:00→21:00)
[2016-12-04] MEDS: ESTRADIOL 0.5 MG TABLET PO SCH (09:00)
[2016-12-04] MEDS: OMEGA-3 ACID ESTERS 1 G CAPSULE PO SCH (09:00)
--- NOTE | 2016-12-04 09:00 | NUR ---
Abdomen Patient continues to complain of abdominal pain 10/10. Has mild nausea. Spoke with on phone, obtained order to place NG.
--- NOTE | 2016-12-04 09:29 | NUR ---
NG Placement NG tube attempted on right nare and unable to pass through nose. 16 hungarian NG placed in left nare with little difficulty. Patient tolerated fairly though did complain quite a bit of "throat" discomfort with tube being "irritating". Positive air placement checked by two RN's. NG placed to low intermittent suction.
[2016-12-04] MEDS: AMLODIPINE 5 MG TABLET PO SCH (10:09)
[2016-12-04] MEDS: FLECAINIDE 50 MG TABLET PO SCH ×2 (10:09→21:00)
[2016-12-04] MEDS: POM DOCUSATE SODIUM 100 MG CAPSULE PO SCH ×2 (10:09→21:02)
[2016-12-04] MEDS: CALCITONIN NASAL SPRAY 200 UNITS NAS SCH (10:13)
--- NOTE | 2016-12-04 10:21 | NUR ---
Status Imaging reported moderate stool. PRN suppository given, no stool felt in rectum. Patient took AM pills with sips of water, NG off for 1 hour and then will resume on LIS. Denies nausea at this time. Continues with abdominal pain 10/10. Also let patient know that ambulating helps the bowels move.
--- NOTE | 2016-12-04 11:14 | NUR ---
PT note: Pt declines PT today d/t pain. Will cont per POC.
--- NOTE | 2016-12-04 11:27 | NUR ---
Status Patient anxious, stating I just want to pass out. "Pain is unbearable". Encouraged patient to relax. Ativan given.
--- NOTE | 2016-12-04 12:54 | NUR ---
CM CM SPOKE [facility] AND THEY ARE AWARE OF PT CURRENT STATUS. CM WILL CONTACT WHEN CLOSER TO D/C. SHALINI FROM [facility] AWARE TO CONTACT CM IF NEEDS ARISE.
--- NOTE | 2016-12-04 13:29 | NUR ---
Pt declined OT . c/o pain and reported feeling very tired. OT will continue to follow up as per POC.
[2016-12-04 15:31] VITALS: BP 123/72; PULSE 88; RESP 14; TEMP 98.4; O2SAT 96
--- NOTE | 2016-12-04 15:48 | NUR ---
Status Patient has felt a little relief since NG placement however keeps asking if we can take the ng out. Pelvic pain is 4/10 however hasn't been out of bed today other then BSC. Denies nausea at this time.
--- NOTE | 2016-12-04 18:08 | PNPDOC ---
Subjective Date DATE: 12/04/16 TIME: 18:03 Subjective Patient seen and examined in her room. Nursing called earlier this morning with report of severe abdominal pain that prevented her from sleeping most of the night. Acute abdominal series was ordered and revealed an early developing ileus with air fluid levels. Nasogastric tube was placed to intermittent suction with good result. She has not walked today because of the earlier events. She does report that her sacral fracture pain is somewhat better today. Objective Vital Signs Vital signs Vital Signs 12/04/16 12/04/16 07:26 15:31 Temp 98.3 98.4 Pulse 89 88 Resp 14 B/P 159/77 123/72 Pulse Ox 94 96 O2 Delivery Room Air Room Air Telemetry Rhythm: Sinus Rhythm Height (Feet): 5 Height (Inches): 2.00 Weight (Kilograms): 56.700 General General Appearance: Cooperative, Moderate Distress Eyes (Brief) Eyes: FOUND: EOMI, PERRL, NOT FOUND: scleral icterus ENMT (Brief) Comments Nasogastric tube placed Neck (Brief) Neck Brief: NOT FOUND: JVD, adenopathy, carotid bruits, thyromegaly Respiratory (Brief) Respiratory Brief: FOUND: clear all ladd, equal bilaterally, NOT FOUND: rales , wheezes Cardiovascular (Brief) Cardiac: FOUND: regular rate, regular rhythm (with occasional ectopy), NOT FOUND: gallop, murmur, pedal edema Abdomen (Brief) Abdominal: FOUND: BS normo active x4, soft, tender Extremities (Brief) Extremity : Extremity Finding: NOT FOUND: edema, pain Lymphatic (Brief) Lymphatic Brief: NOT FOUND: adenopathy, lymphedema Musculoskeletal (Brief) Musculoskeletal Brief: NOT FOUND: deformity, loss of motion, spasm, tenderness Integumentary (Brief) Integumentary: FOUND: dry, pink, warm, NOT FOUND: rash Neurologic (Brief) Neurologic: FOUND: cranial 2-12 intact, motor, sensory Psychiatric (Brief) Psychiatric: FOUND: alert, attentive, normal affect, oriented Radiology DATE OF EXAM: 12/04/16 ORDERING DOCTOR: ZUHAIR RICHARD DO TYPE OF EXAM: ABDOMEN ACUTE (INC. CHEST) REASON FOR EXAM: increased abdominal pain Indication: ITS.REASON: increased abdominal pain PROCEDURE: PA view of the chest with supine and upright AP views of the abdomen Encounter: Initial Comparison: March 11, 2011 FINDINGS: The lungs are clear. There is no abnormal airspace opacity, pleural effusion or pneumothorax identified. The heart size, pulmonary vasculature and mediastinum are within normal limits. There is no free air on the upright view. Multiple nondifferential small bowel air-fluid levels. Mild small bowel dilatation in the central abdomen up to 3.5 cm. Moderate stool throughout the colon. Moderate stool is seen throughout the colon. IMPRESSION: 1. No acute cardiopulmonary abnormality. 2. Small bowel air-fluid levels could represent ileus or gastroenteritis. . Assessment & Plan Problems: (1) Sacral fracture, closed Status: Acute Qualifiers: Encounter type: subsequent encounter Zone of sacrum fracture: unspecified portion of sacrum Fracture healing: with routine healing Qualified Codes: S32.10XD - Unspecified fracture of sacrum, subsequent encounter for fracture with routine healing (2) Adynamic ileus Status: Acute Assessment & Plan: Nasogastric tube placed with good result (3) Gait instability Status: Acute Assessment & Plan: Pain with ambulation affecting gait. (4) Osteoporosis Status: Chronic Qualifiers: Osteoporosis type: age-related Presence of current pathological fracture: with current pathological fracture Encounter type: subsequent encounter (5) Myasthenia gravis Status: Chronic (6) SLE (systemic lupus erythematosus) Status: Chronic (7) Polymyalgia rheumatica Status: Chronic (8) Hypertension Status: Chronic Qualifiers: Hypertension type: essential hypertension Qualified Codes: I10 - Essential (primary) hypertension (9) Stage III chronic kidney disease Status: Chronic (10) Cardiac dysrhythmia Status: Chronic (11) Hyponatremia Status: Acute Assessment & Plan: POA (12) Vitamin D deficiency Plan/Intensity of Service Continue PT/OT to help maximize functional status - IRU screen placed, anticipate evaluation for IRU tomorrow. Continue with pain control. Continue with bowel motivation. Continue SCDs for DVT prevention. Anticipate Dr Richard's return in am, care will be transferred back. Case discussed with patient's daughter. Time spent with patient care 25 minutes. Code Status Full Code Hospital Course Summary Disclaimer The hospital course summary below is not to be considered part of the above Progress Note. Hospital Course Summary 11/30 Admit. Kami is a very pleasant 81-year-old white female who was brought to the emergency department last night in 9 controlled pain secondary to a nondisplaced sacral fracture. She sustained a nondisplaced sacral fracture secondary to a fall approximately a week or 2 ago. She does have a history of osteoporosis she has been trying to control the pain with 5 mg of Savery at home. 5 mg of Savery did not adequately control her pain and so she was advised to double this dose. At 10 mg she states that she was too foggy cognitively. She states she was unable to think clearly at all and so did not take 10 mg again. For the last 2 days she has been only able to control the pain with no movement at all. Upon movement her pain jumps to 9-10 out of 10. This patient has extreme pain upon movement in her sacrum. This is most likely from her nondisplaced sacral fracture with resultant sacrospinalis spasm. I spoke with radiology about the possibility of a sacral plasty. After reviewing her MRI the interventional radiologist indicated that sacral plasty is not effective for a fracture with her location. At this time, I will try to control her pain with Lidoderm patch, Percocet, Miacalcin nasal spray with calcium and vitamin D. I will double submit calcium dose as this is the dose for bone fracture pain. At some point in the future, I think she would be a candidate for inpatient rehabilitation until she is safe enough to be at home by herself. 12/01 - Dr Park - Coverage for Dr Richard. Doing better today-pain finally controllable at rest. Still has significant discomfort with movements-hard to get out of bed due to pain and very painful with walking. Worked with therapy today-painful. Tolerating Percocet without nausea. No ab pain. Breathing well without SOA, cough or congestion. No chest pressure or palpitations. No f/c. Consult PT/OT to help maximize functional status. Continue with pain control. Add prn MOM, Dulcolax, and Miralax to routine Colace to help decrease potential for narcotic induced constipation. SCD for DVT prevention. Recheck BMP in am due to hyponatremia. Will check Vitamin D level due to fracture. 12/02 - Xavier - coverage for Dr Richard Doing okay. More sore today-feels overdid it yesterday. Pain adequately controlled. Tolerating medications-was 'fuzzy' with them yesterday, but not so much today. Slight nausea this am, but able to eat well and not have emesis. Passing flatus-feels about ready for bowel movement. Breathing well. No chest pain. No f/c. Continue PT/OT to help maximize functional status - IRU screen placed, anticipate evaluation for IRU tomorrow. Continue with pain control. Continue with bowel motivation. Continue SCDs for DVT prevention. 12/03/2016: Hospitalist notes reviewed from this weekend and appreciated. Kami seems to be doing somewhat better today however she still has significant pain with movement. She is able to support her weight with the aid of a walker and is able to ambulate to the bathroom and even down the avalos. She may be ready to discharge for outside nursing care as soon as tomorrow. ZUHAIR RICHARD DO Dec 04, 2016 18:07
[2016-12-04] MEDS: 1/2 NS w/ KCL 20mEq 1,000 ML IV SCH (18:09)
[2016-12-04] MEDS ORDERED: SORE THROAT SPRAY 20ml PO PRN (18:15)
--- NOTE | 2016-12-04 18:32 | NUR ---
Status Patient complains of nausea and throat discomfort, zofran and Chloraseptic spray given. Pain in upper abdomen continues. Patient has only urinated x1 this shift. Notified , IV fluids initiated. NG clamped at this time.
[2016-12-04] MEDS: PSYLLIUM PO SCH (21:02)
[2016-12-04] MEDS: MILK OF MAGNESIA 30 ML SUSP PO PRN (21:02)
--- NOTE | 2016-12-04 21:15 | NUR ---
Status Pt in significant abdominal pain. Also has sacral pain. Gave patient IV and PO Ativan per patient request. She stated, "I just feel miserable. I just want to sleep and forget this night." Gave PRN MOM for constipation. NG tube still clamped per Dr. Dietz's request. Pt took only small sips of [place] with pills. Will continue to monitor.
[2016-12-04] MEDS: LORAZEPAM 0.5 MG TABLET PO PRN (22:46)
[2016-12-05 00:03] VITALS: BP 149/81; PULSE 90; RESP 16; TEMP 98.8; O2SAT 96
--- NOTE | 2016-12-05 00:40 | NUR ---
Bowel Movements Pt incontinent of large formed BM because of urgency. Returned to bed, and immediately needed to have another bowel movement. This time it was a large amount of liquid, chunky brown stool. Pt reported a significant relief from abdominal pain in middle and upper abdomen, the main locations of prior pain. Will continue to monitor.
[2016-12-05] MEDS: LORAZEPAM 2 MG/ML INJECTION IV PRN (02:25)
[2016-12-05] MEDS: 1/2 NS w/ KCL 20mEq 1,000 ML IV SCH ×2 (04:52→15:05)
--- NOTE | 2016-12-05 04:57 | NUR ---
Status Pt given another dose of ativan per her request. IVF running. Pt denied any stomach discomfort at all at approx 0245. Pt appears to rest well at this time. States that she would like the NG tube removed if possible, because that is what is bothering her at this time. Up with 1, GB, and walker. Unsteady and weak on feet. Bed alarm on. Uses call light appropriately. Will continue to monitor.
[2016-12-05 05:00] LABS: HGB - HEMOGLOBIN 12.8 GM/DL (12-16); MEAN CORPUSCULAR HGB CONC(MCHC 32.8 GM/DL (31-37); MEAN CORPUSCULAR VOLUME 91.5 UM3 (80-100); MEAN PLATELET VOLUME 10.1 UM3 (9.4-12.4); RED BLOOD COUNT 4.26 M/MM3 (4.00-5.20); WBC - WHITE BLOOD COUNT 10.5 T/MM3 (4.5-11.0)
[2016-12-05 05:23] LABS: ALBUMIN 3.7 G/DL (3.5-5.0); ALBUMIN/GLOBULIN RATIO 1.1 RATIO (1.1-2.2); ALKALINE PHOSPHATASE 155 U/L (38-126); ALT (SGPT) 39 U/L (9-52); ANION GAP 11 MEQ/L (5-15); AST (SGOT) 35 U/L (14-36); BUN/CREATININE RATIO 23 RATIO (6-26); CALCIUM 9.4 MG/DL (8.4-10.2); CHLORIDE 91 MEQ/L (98-107); CO2 - CARBON DIOXIDE 30 MEQ/L (22-30); CREATININE 1.3 MG/DL (0.7-1.2); GLOMERULAR FILTRATION RATE 40; GLUCOSE 119 MG/DL (65-110); POTASSIUM 4.5 MEQ/L (3.6-5); SODIUM 132 MEQ/L (134-144); TOTAL PROTEIN 7.2 G/DL (6.3-8.2)
[2016-12-05 06:15] LABS: BAND NEUTROPHILS # 0.2 T/MM3; BASOPHILS # (MANUAL) 0.1 T/MM3 (0-0.2); LYMPHOCYTES # (MANUAL) 1.9 T/MM3 (1-4.8); MONOCYTES # (MANUAL) 0.9 T/MM3 (0-0.8); NEUTROPHILS #(MANUAL)-ABSOLUTE 7.4 T/MM3 (1.8-7.7); NUCLEATED RED BLOOD CELLS 1; TOTAL CELLS COUNTED 100 %
[2016-12-05] MEDS: OMEPRAZOLE 20 MG CAPSULE PO SCH (07:10)
--- NOTE | 2016-12-05 07:10 | NUR ---
Bowel Movement Pt was incontinent of large brown partially formed and partially liquid BM this morning. Pt reports no abdominal pain whatsoever and states she feels great! Shift report given to CHUCK Wellington.
[2016-12-05 07:45] VITALS: BP 131/67; PULSE 84; RESP 16; TEMP 98.2; O2SAT 93
[2016-12-05] MEDS: OMEGA-3 ACID ESTERS 1 G CAPSULE PO SCH (09:17)
[2016-12-05] MEDS: FLECAINIDE 50 MG TABLET PO SCH ×2 (09:17→19:35)
[2016-12-05] MEDS: CALCIUM 600mg + VIT D 400 TABLET PO SCH ×2 (09:17→19:34)
[2016-12-05] MEDS: PredniSONE 10 MG TABLET PO SCH (09:17)
[2016-12-05] MEDS: CALCITONIN NASAL SPRAY 200 UNITS NAS SCH (09:18)
[2016-12-05] MEDS: MAGNESIUM OXIDE 400 MG TABLET PO SCH (09:18)
[2016-12-05] MEDS: POM DOCUSATE SODIUM 100 MG CAPSULE PO SCH ×2 (09:18→19:35)
[2016-12-05] MEDS: AMLODIPINE 5 MG TABLET PO SCH (09:18)
--- NOTE | 2016-12-05 10:23 | NUR ---
Status Patient alert and oriented. Greeted me with a smile this am. Kami is feeling so much better today. States her abdomen is only tender to palpation, denies nausea. Patient had BMs overnight. Patient's only need was to get NG out. NG removed. Encouraged patient to start eating small meals. Patient is fatigued and wanting to sleep. Did ambulate in halls with walker.
--- NOTE | 2016-12-05 10:51 | NUR ---
CM CM VISITED PT AND SON. PT IS PLANNING TO D/C TO [facility] BUT IF [facility] HAS AVAILABILITY SATURDAY PT WOULD LIKE [facility]. PORTAL IS OPEN. PT IS AWARE THAT CM IS AWAITING DR RICHARD FOR D/C INSTRUCTIONS ANTICIPATED D/C TODAY OR TOMORROW. PT IS AWARE TO CONTACT CM IF NEEDS [facility].
[2016-12-05] MEDS: ACETAMINOPHEN 500 MG TABLET PO PRN ×2 (13:53→21:38)
--- NOTE | 2016-12-05 13:54 | NUR ---
CM PT WILL D/C TOMORROW PER DR RICHARD TO [facility] UNLESS [facility] CALLS WITH AVAILABILITY.
--- NOTE | 2016-12-05 13:55 | NUR ---
Status Patient has tolerated a pudding. States her abdomen continues to be tender and every so often has a cramp. Pain 4/10 to sacral area, Tylenol given. Has had loose BM this shift. Up with 1. Has ambulated in halls x3 today.
--- NOTE | 2016-12-05 14:14 | NUR ---
RASHIDA FIELD SPOKE WITH MINOO FROM FROM [facility] AND THEY WILL NOT HAVE AVAILABILITY UNTIL SATURDAY. PT WILL D/C TO [facility] TOMORROW AND SHALINI FROM [facility] IS AWARE.
[2016-12-05 15:16] VITALS: BP 129/54; PULSE 52; RESP 16; TEMP 98; O2SAT 96
--- NOTE | 2016-12-05 18:24 | NUR ---
Status Patient tolerated her supper. Continues with her upper abdomen being tender. Up in halls with walker. Breathing comfortably on RA.
--- NOTE | 2016-12-05 18:51 | PNPDOC ---
Subjective Date DATE: 12/05/16 TIME: 18:45 Subjective Patient seen and examined in her room. Discussed this case with her nursing staff as well. Kami indicates that she was able to walk down to the nurses station twice today and back and forth from her bed to the hallway twice. She appears greatly improved. She no longer has the nasogastric tube. She did tolerate her meals today. She still has abdominal pain but "nothing like it was. " She denies chest pain or shortness of breath. She still has sacral pain which at this point is rated at 5 out of 10. She is only taken Tylenol Extra Strength today; no narcotics. She states that this has not controlled the pain is well but at least she doesn't have an ileus either. Objective Vital Signs Vital signs Vital Signs 12/05/16 12/05/16 07:45 15:16 Temp 98.2 98.0 Pulse 84 52 Resp 16 16 B/P 131/67 129/54 Pulse Ox 93 96 O2 Delivery Room Air Room Air Telemetry Rhythm: Sinus Rhythm Height (Feet): 5 Height (Inches): 2.00 Weight (Kilograms): 56.500 General General Appearance: Alert, Orientated x 3, Cooperative, No Acute Distress, Able to walk Eyes (Brief) Eyes: FOUND: EOMI, PERRL, NOT FOUND: scleral icterus Neck (Brief) Neck Brief: NOT FOUND: JVD, adenopathy, carotid bruits, spasm, tenderness, thyromegaly Respiratory (Brief) Respiratory Brief: FOUND: clear all ladd, equal bilaterally, NOT FOUND: rales , wheezes Cardiovascular (Brief) Cardiac: FOUND: regular rate, regular rhythm, NOT FOUND: gallop, murmur, pedal edema Abdomen (Brief) Abdominal: FOUND: BS normo active x4, soft, tender (mildly tender), NOT FOUND: distended, hepatosplenomegaly Extremities (Brief) Extremity : Extremity Finding: NOT FOUND: edema, pain Lymphatic (Brief) Lymphatic Brief: NOT FOUND: adenopathy, lymphedema Musculoskeletal (Brief) Musculoskeletal Brief: NOT FOUND: deformity, loss of motion, spasm, tenderness Integumentary (Brief) Integumentary: FOUND: dry, pink, warm, NOT FOUND: rash Neurologic (Brief) Neurologic: FOUND: cranial 2-12 intact, motor, sensory Psychiatric (Brief) Psychiatric: FOUND: alert, attentive, normal affect, oriented Laboratory Laboratory Laboratory Tests 12/05/16 04:15 Laboratory Tests 12/05/16 04:15 Assessment & Plan Problems: (1) Sacral fracture, closed Status: Acute Qualifiers: Encounter type: subsequent encounter Zone of sacrum fracture: unspecified portion of sacrum Fracture healing: with routine healing Qualified Codes: S32.10XD - Unspecified fracture of sacrum, subsequent encounter for fracture with routine healing Assessment & Plan: Kami is progressing nicely. She still has significant sacral pain with walking, however now she rates it at 5 out of 10 down from 9- 10 out of 10 (2) Adynamic ileus Status: Acute Assessment & Plan: Nasogastric tube placed with good result. NG tube is now discontinued. Her condition is improving nicely (3) Gait instability Status: Acute Assessment & Plan: Pain with ambulation affecting gait. (4) Osteoporosis Status: Chronic Qualifiers: Osteoporosis type: age-related Presence of current pathological fracture: with current pathological fracture Encounter type: subsequent encounter (5) Myasthenia gravis Status: Chronic (6) SLE (systemic lupus erythematosus) Status: Chronic (7) Polymyalgia rheumatica Status: Chronic (8) Hypertension Status: Chronic Qualifiers: Hypertension type: essential hypertension Qualified Codes: I10 - Essential (primary) hypertension (9) Stage III chronic kidney disease Status: Chronic (10) Cardiac dysrhythmia Status: Chronic (11) Hyponatremia Status: Acute Assessment & Plan: POA (12) Vitamin D deficiency Plan/Intensity of Service Continue PT/OT to help maximize functional status - IRU screen placed, anticipate evaluation for IRU tomorrow. Continue with pain control. Continue with bowel motivation. Continue SCDs for DVT prevention. Anticipate Dr Richard's return in am, care will be transferred back. Case discussed with patient's daughter. Time spent with patient care 25 minutes. Code Status Full Code Hospital Course Summary Disclaimer The hospital course summary below is not to be considered part of the above Progress Note. Hospital Course Summary 11/30 Admit. Kami is a very pleasant 81-year-old white female who was brought to the emergency department last night in 9 controlled pain secondary to a nondisplaced sacral fracture. She sustained a nondisplaced sacral fracture secondary to a fall approximately a week or 2 ago. She does have a history of osteoporosis she has been trying to control the pain with 5 mg of Keiser at home. 5 mg of Keiser did not adequately control her pain and so she was advised to double this dose. At 10 mg she states that she was too foggy cognitively. She states she was unable to think clearly at all and so did not take 10 mg again. For the last 2 days she has been only able to control the pain with no movement at all. Upon movement her pain jumps to 9-10 out of 10. This patient has extreme pain upon movement in her sacrum. This is most likely from her nondisplaced sacral fracture with resultant sacrospinalis spasm. I spoke with radiology about the possibility of a sacral plasty. After reviewing her MRI the interventional radiologist indicated that sacral plasty is not effective for a fracture with her location. At this time, I will try to control her pain with Lidoderm patch, Percocet, Miacalcin nasal spray with calcium and vitamin D. I will double submit calcium dose as this is the dose for bone fracture pain. At some point in the future, I think she would be a candidate for inpatient rehabilitation until she is safe enough to be at home by herself. 12/01 - Dr Park - Coverage for Dr Richard. Doing better today-pain finally controllable at rest. Still has significant discomfort with movements-hard to get out of bed due to pain and very painful with walking. Worked with therapy today-painful. Tolerating Percocet without nausea. No ab pain. Breathing well without SOA, cough or congestion. No chest pressure or palpitations. No f/c. Consult PT/OT to help maximize functional status. Continue with pain control. Add prn MOM, Dulcolax, and Miralax to routine Colace to help decrease potential for narcotic induced constipation. SCD for DVT prevention. Recheck BMP in am due to hyponatremia. Will check Vitamin D level due to fracture. 12/02 - Xavier - coverage for Dr Richard Doing okay. More sore today-feels overdid it yesterday. Pain adequately controlled. Tolerating medications-was 'fuzzy' with them yesterday, but not so much today. Slight nausea this am, but able to eat well and not have emesis. Passing flatus-feels about ready for bowel movement. Breathing well. No chest pain. No f/c. Continue PT/OT to help maximize functional status - IRU screen placed, anticipate evaluation for IRU tomorrow. Continue with pain control. Continue with bowel motivation. Continue SCDs for DVT prevention. 12/03/2016: Hospitalist notes reviewed from this weekend and appreciated. Kami seems to be doing somewhat better today however she still has significant pain with movement. She is able to support her weight with the aid of a walker and is able to ambulate to the bathroom and even down the velasco. She may be ready to discharge for outside nursing care as soon as tomorrow. 12/05/2016: Joey was able to ambulate in the velasco twice today. Her adynamic ileus has resolved. NG tube is discontinued. She has been controlling her pain today with Tylenol Extra Strength. I'm expecting to discharge her tomorrow to [facility]. ZUHAIR RICHARD DO Dec 05, 2016 18:49
[2016-12-05] MEDS: OXYCODONE/APAP 5mg/325mg TABLET PO PRN (19:35)
[2016-12-05] MEDS: PSYLLIUM PO SCH (19:35)
--- NOTE | 2016-12-05 19:35 | NUR ---
comfort states pain to sacral area, requests Percocet prior to ambulation
[2016-12-05] MEDS: LORAZEPAM 0.5 MG TABLET PO PRN (21:38)
--- NOTE | 2016-12-05 21:40 | NUR ---
rest requests tylenol and ativan to assist w/ comfort and rest
[2016-12-06 00:04] VITALS: BP 137/62; PULSE 48; RESP 12; O2SAT 94
[2016-12-06] MEDS: 1/2 NS w/ KCL 20mEq 1,000 ML IV SCH (01:26)
--- NOTE | 2016-12-06 05:20 | NUR ---
rest sleeps restfully, resp. easy. Repositions self for comfort.
[2016-12-06] MEDS: OMEPRAZOLE 20 MG CAPSULE PO SCH (06:38)
[2016-12-06 07:26] VITALS: BP 141/66; PULSE 55; RESP 14; TEMP 95.2; O2SAT 97
[2016-12-06] MEDS: POM DOCUSATE SODIUM 100 MG CAPSULE PO SCH (08:26)
[2016-12-06] MEDS: PredniSONE 10 MG TABLET PO SCH (08:26)
[2016-12-06] MEDS: CALCIUM 600mg + VIT D 400 TABLET PO SCH (08:26)
[2016-12-06] MEDS: MAGNESIUM OXIDE 400 MG TABLET PO SCH (08:27)
[2016-12-06] MEDS: ESTRADIOL 0.5 MG TABLET PO SCH (08:27)
[2016-12-06] MEDS: OMEGA-3 ACID ESTERS 1 G CAPSULE PO SCH (08:27)
[2016-12-06] MEDS: AMLODIPINE 5 MG TABLET PO SCH (08:28)
[2016-12-06] MEDS: FLECAINIDE 50 MG TABLET PO SCH (08:28)
[2016-12-06] MEDS: OXYCODONE/APAP 5mg/325mg TABLET PO PRN (08:31)
[2016-12-06] MEDS: CALCITONIN NASAL SPRAY 200 UNITS NAS SCH (08:32)
--- NOTE | 2016-12-06 09:30 | NUR ---
requested Percocet for pain states she is sore from yesterday. up to br with walker and gait belt. to chair most of day
--- NOTE | 2016-12-06 09:54 | NUR ---
RASHIDA FIELD IN TO VISIT PATIENT, SHE IS A&O. PATIENT THOUGHT SHE WAS GOING TO SNF TODAY, BUT HAS APPROVED GOING TO [facility] IF BED NOT AVAILABLE. I DID CALL MINOO AT TO VERIFY AND SHE SAID THAT THERE WEREN'T ANY BEDS AVAILABLE SOON AT BUT 1 OPEN AT [facility] LATE IN THE DAY ON SATURDAY.
--- NOTE | 2016-12-06 10:15 | NUR ---
CM LEFT MESSAGE FOR SHALINI AT [facility] TO VERIFY TRANSPORT TODAY.
--- NOTE | 2016-12-06 11:44 | NUR ---
RASHIDA LOYA [facility] RETURNED CALL AND SAID THAT SHE HAD LEFT A MESSAGE ON [facility] [employer] MA[employer] PROBABLY AFTER SHE LEFT FOR THE DAY THAT [facility] DENIED HER SNF STAY AND RECOMMENDED HOME WITH [facility]. I SPOKE WITH PATIENT, SHE HAD HOPED FOR A SHORT REHAB STAY. SHE LIVES ALONE AND [facility] HELP BUT WORKS. WE VISITED ABOUT [facility], SHE WOULD LIKE TO TALK WITH DR RICHARD. WILL FOLLOW.
--- NOTE | 2016-12-06 12:08 | NUR ---
states pain is a 4 .
[2016-12-06] MEDS ORDERED: CALC3.7S NAS (13:26)
[2016-12-06] MEDS ORDERED: CALC-747 PO (13:26)
--- NOTE | 2016-12-06 13:27 | PDOCECFAO ---
Admission Orders Admission Orders Admit to: Detention Allergies: Coded Allergies: celecoxib (Verified Allergy, Intermediate, SWELLING AND HIVES, 11/30/16) Pentazocine Lactate (Verified Allergy, Unknown, 11/30/16) dextromethorphan HBr (Verified Allergy, Unknown, 11/30/16) guaifenesin (Verified Allergy, Unknown, 11/30/16) isradipine (Verified Allergy, Unknown, 11/30/16) ofloxacin (Verified Allergy, Unknown, 11/30/16) oxaprozin (Verified Allergy, Unknown, 11/30/16) piroxicam (Verified Allergy, Unknown, 11/30/16) prazosin HCl (Verified Allergy, Unknown, 11/30/16) propoxyphene (Verified Allergy, Unknown, 11/30/16) propranolol (Verified Allergy, Unknown, 11/30/16) pyridostigmine (Verified Allergy, Unknown, 11/30/16) Uncoded Allergies: MIRTHA (Allergy, Unknown, 11/02/12) Admitting Diagnosis Sacral Fracture Admitting Physician Doc Richard DO Code Status Full Code Anticipated LOS: 30 days or less Diet: Regular Wound/Incision Care: N/A May use Facility Protocol /SO: Yes Evaluations/Treat: PT, OT Detention Certification I certify that SNF services are required to be given on an Inpatient basis because of the patients need for [facility] care on a continuing basis for the condition(s) for which he/she received inpatient hospital services prior to his/her transfer to the SNF. SNF inpatient care is necessary for the following reasons Other Cardiac or Respiratory Arrest In Event of Arrest: Start CPR,call 911,to ER DOC RICHARD DO Dec 06, 2016 13:27
--- NOTE | 2016-12-06 13:29 | DSPDOC ---
Discharge Diagnoses Discharge Diagnoses (1) Sacral fracture, closed Comments: Kami is progressing nicely. She still has significant sacral pain with walking, however now she rates it at 5 out of 10 down from 9-10 out of 10 (2) Adynamic ileus Comments: Nasogastric tube placed with good result. NG tube is now discontinued. Her condition is improving nicely (3) Gait instability Comments: Pain with ambulation affecting gait. (4) Osteoporosis (5) Myasthenia gravis (6) SLE (systemic lupus erythematosus) (7) Polymyalgia rheumatica (8) Hypertension (9) Stage III chronic kidney disease (10) Cardiac dysrhythmia (11) Hyponatremia Comments: POA (12) Vitamin D deficiency Hospital Course 11/30 Admit. Kami is a very pleasant 81-year-old white female who was brought to the emergency department last night in 9 controlled pain secondary to a nondisplaced sacral fracture. She sustained a nondisplaced sacral fracture secondary to a fall approximately a week or 2 ago. She does have a history of osteoporosis she has been trying to control the pain with 5 mg of [place] at home. 5 mg of [place] did not adequately control her pain and so she was advised to double this dose. At 10 mg she states that she was too foggy cognitively. She states she was unable to think clearly at all and so did not take 10 mg again. For the last 2 days she has been only able to control the pain with no movement at all. Upon movement her pain jumps to 9-10 out of 10. This patient has extreme pain upon movement in her sacrum. This is most likely from her nondisplaced sacral fracture with resultant sacrospinalis spasm. I spoke with radiology about the possibility of a sacral plasty. After reviewing her MRI the interventional radiologist indicated that sacral plasty is not effective for a fracture with her location. At this time, I will try to control her pain with Lidoderm patch, Percocet, Miacalcin nasal spray with calcium and vitamin D. I will double submit calcium dose as this is the dose for bone fracture pain. At some point in the future, I think she would be a candidate for inpatient rehabilitation until she is safe enough to be at home by herself. 12/01 - Dr Park - Coverage for Dr Richard. Doing better today-pain finally controllable at rest. Still has significant discomfort with movements-hard to get out of bed due to pain and very painful with walking. Worked with therapy today-painful. Tolerating Percocet without nausea. No ab pain. Breathing well without SOA, cough or congestion. No chest pressure or palpitations. No f/c. Consult PT/OT to help maximize functional status. Continue with pain control. Add prn MOM, Dulcolax, and Miralax to routine Colace to help decrease potential for narcotic induced constipation. SCD for DVT prevention. Recheck BMP in am due to hyponatremia. Will check Vitamin D level due to fracture. 12/02 - Xavier - coverage for Dr Richard Doing okay. More sore today-feels overdid it yesterday. Pain adequately controlled. Tolerating medications-was 'fuzzy' with them yesterday, but not so much today. Slight nausea this am, but able to eat well and not have emesis. Passing flatus-feels about ready for bowel movement. Breathing well. No chest pain. No f/c. Continue PT/OT to help maximize functional status - IRU screen placed, anticipate evaluation for IRU tomorrow. Continue with pain control. Continue with bowel motivation. Continue SCDs for DVT prevention. 12/03/2016: Hospitalist notes reviewed from this weekend and appreciated. Kami seems to be doing somewhat better today however she still has significant pain with movement. She is able to support her weight with the aid of a walker and is able to ambulate to the bathroom and even down the velasco. She may be ready to discharge for outside nursing care as soon as tomorrow. 12/05/2016: Joey was able to ambulate in the velasco twice today. Her adynamic ileus has resolved. NG tube is discontinued. She has been controlling her pain today with Tylenol Extra Strength. I'm expecting to discharge her tomorrow to [facility]. Home Meds Active Scripts Calcitonin,[place],Synthetic (Miacalcin) 30 Kimberly/3.7 Ml Kimberly, 1 SPRAY SHOBHA DAILY for 30 Days, #3.7 ML 2 Refills Prov:ZUHAIR RICHARD DO 12/06/16 Calcium Carbonate/Vitamin D3 (Calcium 600 + Vit D 400 Tablet) 1 Each Tablet, 1 TAB PO BID for 30 Days, #60 TAB 5 Refills Prov:ZUHAIR RICHARD DO 12/06/16 Reported Medications Docusate Sodium (Colace) 100 Mg Capsule, 1 CAP PO BID for STOOL SOFTENING, CAP 11/30/16 Psyllium Husk (with Sugar) (Metamucil Packet) 3.4 Gm Powd.pack, 1 PACKET PO HS 11/23/16 Magnesium Oxide (Magnesium Oxide) 400 Mg Tablet, 400 MG PO DAILY 11/23/16 [place]-3S/Dha/Epa/Fish Oil/D3 (Fish Oil + D3 Softgel) 1 Each Capsule, 1 CAP PO DAILY 11/23/16 Prednisone (Prednisone) 5 Mg Tablet, 5 MG PO WB 11/23/16 Metoprolol Tartrate (Metoprolol Tartrate) 25 Mg Tablet, 12.5 MG PO HS Y for PRN ORDERS 11/23/16 Amlodipine Besylate (Amlodipine Besylate) 5 Mg Tablet, 5 MG PO DAILY 11/23/16 Acetaminophen (Acetaminophen) 500 Mg Tablet, 1000 MG PO Q8H Y for PAIN 05/03/16 Omeprazole (Omeprazole) 40 Mg Capsule.dr, 40 MG PO DAILY 05/03/16 Estradiol (Estrace) 0.5 Mg Tablet, 0.5 MG PO TuThSa 10/09/15 Flecainide Acetate (Flecainide Acetate) 150 Mg Tablet, 75 MG PO BID 12/15/09 Discontinued Reported Medications Calcium Carb/Mag Oxide/Vit D3 (Calcium Magnesium + D Tablet) 1 Each Tablet, 1 TAB PO DAILY 10/09/15 Discontinued Scripts Hydrocodone/Acetaminophen ([place] 5-325 Tablet) 5-325 Tablet, 1-2 TAB PO Q6H Y for PAIN, #15 TAB Prov:SHONA LEO MD 11/23/16 Discharge Disposition to [facility] Copies To 1: ZUHAIR RICHARD DO Follow up Condition at time of discharge: Good Follow up at [facility] in 10-14 days ZUHAIR RICHARD DO Dec 06, 2016 13:29
--- NOTE | 2016-12-06 14:13 | NUR ---
CM DR RICHARD NOTIFIED THAT PATIENT WAS DENIED SNF STAY, HE GAVE ME VERBAL ORDERS FOR HOME HEALTH BUT PATIENT PREFERS THAT IF SHE NEEDS TO GO HOME NOT TO HAVE HOME HEALTH. SHE DOES HAVE QUESTIONS FOR HIM BEFORE LEAVING HOWEVER, NURSE NOTIFIED AND COMMUNICATION SHEET LEFT ON CHART, LEFT MESSAGE AT DR [facility]ICHARD[facility]S CLIN[facility] TO STOP AND SEE PATIENT.
--- NOTE | 2016-12-06 15:04 | NUR ---
[facility] REPEATED LACE TODAY, SCORE IS 12. GAVE PATIENT INFORMATION REGARDING ROTP, SHE DOES NOT WANT IT NOW, WILL GO HOME AND SEE AND SHE DOES. WILL CALL BACK TO [facility] IF INTERESTED.
[2016-12-06 15:27] VITALS: BP 130/67; RESP 18; TEMP 97.6; O2SAT 94
[2016-12-06] MEDS: ACETAMINOPHEN 500 MG TABLET PO PRN (16:36)
--- NOTE | 2016-12-06 16:38 | NUR ---
discomfort Co of mild sacral pain medicated with Tylenol 1000 mg po.
--- NOTE | 2016-12-06 17:54 | NUR ---
states pain is improved waiting to talk to dr hopson regarding dismissal.
--- NOTE | 2016-12-06 18:40 | NUR ---
dc instructions reviewed dc per wc with lillian.
--- NOTE | 2016-12-10 12:53 | NUR ---
CM CM LEFT VM
== END 2016-12-06 18:33 | disposition home or self-care (01) | DRG 560 ==
LOC: ED 05:02 → EDHOLD 06:31 → MED 07:05 → OBSVTOIN 19:26
PROVIDERS: ADMIT Internal Medicine; ATTEND Internal Medicine
PROC: 0D9670Z Drainage of Stomach with Drainage Device, Via Natural or Artificial Opening (ICD-10-PCS; principal; 2016-12-04)
DX: S32.10XD Unspecified fracture of sacrum, subsequent encounter for fracture with routine healing (principal); K56.0 Paralytic ileus; E87.1 Hypo-osmolality and hyponatremia; M32.9 Systemic lupus erythematosus, unspecified; G70.00 Myasthenia gravis without (acute) exacerbation; I12.9 Hypertensive chronic kidney disease with stage 1 through stage 4 chronic kidney disease, or unspecified chronic kidney disease; N18.3 Chronic kidney disease, stage 3 (moderate); M35.3 Polymyalgia rheumatica; R26.9 Unspecified abnormalities of gait and mobility; K59.03 Drug induced constipation; M81.0 Age-related osteoporosis without current pathological fracture; T40.605A Adverse effect of unspecified narcotics, initial encounter; Z79.891 Long term (current) use of opiate analgesic; Z79.899 Other long term (current) drug therapy; Z79.52 Long term (current) use of systemic steroids
CPT/HCPCS: 36415; 80048; 80053; 81001; 82306; 82607; 85007; 85025; 85027; 86140; 96374